=== PATIENT | male | born 1935 | race Caucasian/White ===

== ENCOUNTER 2016-07-26 15:55 | Emergency (ER) | payer MEDICARE ==
[~2016-07-26] VITALS: Ht 167.6 cm; Wt 88.4 kg
[~2016-07-26 15:55] MED LIST: ASPI81TA84 PO; LORA10CA3 PO; Metoprolol Succinate PO; NITR0.4T27 SL; SIMV40TA73 PO
[2016-07-26 15:56] VITALS: Ht 167.6 cm; Wt 88.4 kg
--- OUTSIDE RECORDS SUMMARY | 2016-07-26 15:59 | XMS REPORT | Referral Summary ---
Author Author [facility] Organization [facility] Address Unknown Phone Unavailable Care Team Providers Care Rn Support Services Name Role Phone Adiel Carlos Primary Care Physician [phone] Encounter VC Date(s): 02/06/15 - 02/06/15 [facility] [address] [place] [address] [place] [phone] Discharge Diagnosis: Essential hypertension Discharge Diagnosis: History of coronary artery bypass surgery Discharge Diagnosis: Hypercholesteremia Discharge Diagnosis: Coronary heart disease Discharge Disposition: -Home or Self Care Attending Physician: Eliseo Landers MD Admitting Physician: Eliseo Landers MD Referring Physician: Mir Carlos MD Vital Signs Most recent to 1 oldest [Reference Range]: Peripheral Pulse 64 bpm Rate [60-100 bpm] (02/06/15 9:23 AM) Blood Pressure 116/70 mmHg [90-140/60-90 mmHg] (02/06/15 9:23 AM) Problem List Condition Effective Dates Status Health Status Informant Allergic Resolved rhinitis(Confirmed) Arthritis(Confirmed) Resolved Benign essential Active hypertension (disorder)(Confirmed ) CAD (coronary artery Resolved disease)(Confirmed) Chicken Resolved pox(Confirmed) Coronary Active arteriosclerosis (disorder)(Confirmed ) Diabetes Resolved mellitus(Confirmed) Erectile Resolved dysfunction(Confirme d) Hay fever(Confirmed) Resolved Hypercholesteremia(C Resolved onfirmed) Hyperglycemia(Confir Resolved med) Hypertension(Confirm Resolved ed) Impotence of organic Active origin (disorder)(Confirmed ) Kidney Resolved disease(Confirmed) Kidney Resolved stones(Confirmed) Measles(Confirmed) Resolved Mumps(Confirmed) Resolved Obesity(Confirmed) Active patient Pneumonia(Confirmed) Resolved Prostate Resolved pain(Confirmed) PsA(Confirmed) Resolved Pure Active hypercholesterolemia (disorder)(Confirmed ) Allergies, Adverse Reactions, Alerts Substance Reaction Severity Status iodine Active penicillin Active Medications aspirin 81 mg oral tablet, disintegrating 1 tabs, Oral, Daily Start Date: 01/02/14 Status: Ordered glipiZIDE 5 mg oral tablet 0.5 tabs, Oral, Daily, 0 Refill(s) Start Date: 01/29/14 Status: Ordered Glucometer Lancets (DME) DME Item Lancet, Ultra Thin- 1 day a week, Fasting and 2 Hours PC, Supply Start Date: 01/02/14 Status: Ordered Glucometer strips (DME) DME Item Contour Test Strips- 1 day a week, Fasting and 2 Hours PC, # 1 Each, Supply Start Date: 01/02/14 Status: Ordered metoprolol tartrate 25 mg oral tablet 0.5 tabs, Oral, TID, 0 Refill(s) Start Date: 01/03/14 Status: Ordered nitroglycerin 0.4 mg sublingual tablet 1 tabs, SubLingual, q5min, as needed for chest pain, not to exceed 3 doses/15 min--if pain persists, seek medical attention Start Date: 01/02/14 Status: Ordered simvastatin 20 mg oral tablet 1 tabs, Oral, Daily Start Date: 01/02/14 Status: Ordered Viagra 100 mg oral tablet 1 tabs, Oral, Bedtime (once a day), as needed for erectile dysfunction, 1 hour before sexual activity Start Date: 01/02/14 Status: Ordered Results No data available for this section Immunizations Vaccine Date Refusal Reason tetanus/diphth/pertuss (Tdap) adult/adol 01/18/13 influenza virus vaccine, inactivated 01/29/14 influenza virus vaccine, live 01/18/13 influenza virus vaccine, live 02/15/12 pneumococcal 23-polyvalent vaccine 12/31/08 Procedures Procedure Date Related Diagnosis Body Site Cardiac Bypass 05/03/08 Cystourethroscopy and fulguration 04/13/05 Tuna 10/14/01 Lithotripsy 03/09/01 Social History Social History Type Response Smoking Status Former smoker1 1Quit in 1970 Assessment and Plan Extracted from: Title: Office Visit Note Author: Eliseo Landers MD Date: 02/06/15 Assessment/Plan 1.Coronary heart disease 2.History of coronary artery bypass surgery 3.Essential hypertension 4.Hypercholesteremia Discussion: From a cardiac point of view, he appears to be doing extremely well. I didn't make any changes in his therapy. I advised him to call if he has any symptoms of concern. Given his age and asymptomatic status, I don't plan stress testing this year.
--- OUTSIDE RECORDS SUMMARY | 2016-07-26 15:59 | XMS REPORT | Referral Summary ---
Author Author [facility] Organization [facility] Address Unknown Phone Unavailable Care Team Providers Care Certified Alcohol Drug Counselor Name Role Phone Adiel Carlos Primary Care Physician [phone] Encounter VC Date(s): 02/06/15 - 02/06/15 [facility] [address] [place] [address] [place] [address] Discharge Diagnosis: Essential [...]
--- OUTSIDE RECORDS SUMMARY | 2016-07-26 15:59 | XMS REPORT | Referral Summary ---
Author Author [facility] Organization [facility] Address Unknown Phone Unavailable Care Team Providers Care Wildlife Biologist Name Role Phone Adiel Carlos Primary Care Physician [phone] Encounter VC Date(s): 02/06/15 - 02/06/15 [facility] [address] [place] [address] [place] [address] Discharge Diagnosis: Essential [...]
--- OUTSIDE RECORDS SUMMARY | 2016-07-26 15:59 | XMS REPORT | Referral Summary ---
Author Author [facility], [facility] Organization [facility] Address Unknown Phone Unavailable Care Team Providers Care Chemical Pathologist Name Role Phone Ricci Cuello Primary Care Physician [phone] Encounter VC Date(s): 02/05/16 - 02/05/16 [facility] [address] [place] [address] [place] Discharge Diagnosis: CKD (chronic kidney disease), stage III Discharge Diagnosis: Benign essential hypertension Discharge Diagnosis: Diabetes type 2, controlled Discharge Disposition: 01-Home or Self Care Attending Physician: Ricci Cuello DO Admitting Physician: Ricci Cuello DO Vital Signs Most recent to 1 oldest [Reference Range]: Temperature Tympanic 35.8 degC [36.6-38.1 degC] *LOW* (02/05/16 8:31 AM) Peripheral Pulse 67 bpm Rate [60-100 bpm] (02/05/16 8:31 AM) Blood Pressure 118/56 mmHg [90-140/60-90 mmHg] (02/05/16 8:31 AM) Problem List Condition Effective Dates Status Health Status Informant Allergic Resolved rhinitis(Confirmed) Arthritis(Confirmed) Resolved Benign essential Active hypertension (disorder)(Confirmed ) CAD (coronary artery Resolved disease)(Confirmed) Chicken Resolved pox(Confirmed) CKD (chronic kidney Active disease), stage III(Confirmed) Coronary Active arteriosclerosis (disorder)(Confirmed ) Diabetes Resolved mellitus(Confirmed) Erectile Resolved dysfunction(Confirme d) Hay fever(Confirmed) Resolved Hypercholesteremia(C Resolved onfirmed) Hyperglycemia(Confir Resolved med) Hypertension(Confirm Resolved ed) Impotence of organic Active origin (disorder)(Confirmed ) Kidney Resolved disease(Confirmed) Kidney Resolved stones(Confirmed) Measles(Confirmed) Resolved Mumps(Confirmed) Resolved Obesity(Confirmed) Active patient Pneumonia(Confirmed) Resolved Prostate Resolved pain(Confirmed) PsA(Confirmed) Resolved Pure Active hypercholesterolemia (disorder)(Confirmed ) Diabetes type 2, Active controlled(Confirmed ) Allergies, Adverse Reactions, Alerts Substance Reaction Severity Status iodine Active penicillin Active Medications aspirin 81 mg oral tablet, disintegrating 1 tabs, Oral, Daily Start Date: 01/02/14 Status: Ordered glipiZIDE 5 mg oral tablet 5 mg 1 tabs, Oral, BID, # 180 tabs, 3 Refill(s), 0.5 tabs Oral Daily Start Date: 07/03/15 Stop Date: 06/27/16 Status: Ordered Glucometer Lancets (DME) DME Item [...] Oral, Daily Start Date: 01/02/14 Status: Ordered Results Chemistry Most recent to 1 oldest [Reference Range]: Sodium Lvl [135-144 139 mEq/L mEq/L] (02/05/16 9:05 AM) Potassium Lvl 4.3 mEq/L [3.5-5.2 mEq/L] (02/05/16 9:05 AM) Chloride [99-111 107 mEq/L mEq/L] (02/05/16 9:05 AM) CO2 [23-31 mEq/L] 23 mEq/L (02/05/16 9:05 AM) AGAP [3-20] 9 (02/05/16 9:05 AM) BUN [8-26 mg/dL] 16 mg/dL (02/05/16 9:05 AM) Glucose Lvl [70-99 216 mg/dL mg/dL] *HI* (02/05/16 9:05 AM) Creatinine Lvl 1.50 mg/dL [0.72-1.25 mg/dL] *HI* (02/05/16 9:05 AM) eGFR [>60 mL/min] 45 mL/min 1 *ABN* (02/05/16 9:05 AM) Calcium Lvl 8.9 mg/dL [8.9-10.5 mg/dL] (02/05/16 9:05 AM) Hgb A1c [4.1-5.6 %] 6.6 % *HI* (02/05/16 9:05 AM) eAvg Glucose 142.7 mg/dL (02/05/16 9:05 AM) 1Result Comment: Multiply eGFR results by 1.21 for race. Immunizations Vaccine Date Refusal Reason tetanus/diphth/pertuss (Tdap) [...] Extracted from: Title: Office Visit Note Author: Ricci Cuello DO Date: 02/05/16 Assessment/Plan 1.CKD (chronic kidney disease), stage III 1. Repeat BMP today. 2. Continue with recommendations a previous 3. Continue avoiding NSAID's 4. Follow up if development of swelling to lower exts. Ordered: Office Visit Level 4 Est 61255 2.Benign essential hypertension 1. BP is well controlled at this time. 2. Avoid excessive salt Ordered: Office Visit Level 4 Est 62983 3.Diabetes type 2, controlled 1. Repeat A1c today. 2. Continue with limiting his daily caloric intake 3. Continue with glipizide as previous. Ordered: Office Visit Level 4 Est 95920
--- OUTSIDE RECORDS SUMMARY | 2016-07-26 15:59 | XMS REPORT | Continuity of Care Document ---
Author Author [facility] Organization [facility] Address Unknown Phone Unavailable Allergies Active Description Code Type Severity Reaction Onset Reported/Identified Relationship to Patient Clinical Status Yes iodine NKMA N/A N/A 08/31/2013 Yes penicillin NKMA N/A N/A 08/31/2013 Medications Problems Procedures Results Encounters ACCT No. Visit Date/Time Discharge Status Pt. Type Provider Facility Loc./Unit Complaint [id number] 06/05/2013 08:53:00 06/05/2013 23 :59:59 CLS Outpatient
--- OUTSIDE RECORDS SUMMARY | 2016-07-26 15:59 | XMS REPORT | Referral Summary ---
Author Author [facility] Organization [facility] Address Unknown Phone Unavailable Care Team Providers Care Physician Underwriter Name Role Phone Sandrahoracio Ricci Primary Care Physician [phone] Encounter VC Date(s): 02/12/16 - 02/12/16 [facility] [address] [place] [address] [place] [phone] Discharge Diagnosis: Coronary arteriosclerosis (disorder) Discharge Diagnosis: Pure hypercholesterolemia (disorder) Discharge Diagnosis: CKD (chronic kidney disease), stage III Discharge Diagnosis: Diabetes type 2, controlled Discharge Diagnosis: Benign essential hypertension Discharge Disposition: 01-Home or Self Care Attending Physician: Eliseo Landers MD Admitting Physician: Eliseo Landers MD Vital Signs Most recent to 1 oldest [Reference Range]: Peripheral Pulse 64 bpm Rate [60-100 bpm] (02/12/16 10:38 AM) Blood Pressure 126/64 mmHg [90-140/60-90 mmHg] (02/12/16 10:38 AM) Problem List Condition Effective Dates Status [...] Daily Start Date: 01/02/14 Status: Ordered Results No [...] 1970 Assessment and Plan Extracted from: Title: Ambulatory Patient Education Author: Eliseo Landers MD Date: 02/11 Nephrology Chronic Kidney Disease Chronic kidney disease occurs when the kidneys are damaged over a long period. The kidneys are two organs that lie on either side of the spine between the middle of the back and the front of the abdomen. The kidneys: Remove wastes and extra water from the blood. Produce important hormones. These help keep bones strong, regulate blood pressure, and help create red blood cells. Balance the fluids and chemicals in the blood and tissues. A small amount of kidney damage may not cause problems, but a large amount of damage may make it difficult or impossible for the kidneys to work the way they should. If steps are not taken to slow down the kidney damage or stop it from getting worse, the kidneys may stop working permanently. Most of the time, chronic kidney disease does not go away. However, it can often be controlled, and those with the disease can usually live normal lives. CAUSES The most common causes of chronic kidney disease are diabetes and high blood pressure (hypertension). Chronic kidney disease may also be caused by: Diseases that cause the kidneys' filters to become inflamed. Diseases that affect the immune system. Genetic diseases. Medicines that damage the kidneys, such as anti-inflammatory medicines. Poisoning or exposure to toxic substances. A reoccurring kidney or urinary infection. A problem with urine flow. This may be caused by: Cancer. Kidney stones. An enlarged prostate in males. SIGNS AND SYMPTOMS Because the kidney damage in chronic kidney disease occurs slowly, symptoms develop slowly and may not be obvious until the kidney damage becomes severe. A person may have a kidney disease for years without showing any symptoms. Symptoms can include: Swelling (edema) of the legs, ankles, or feet. Tiredness (lethargy). Nausea or vomiting. Confusion. Problems with urination, such as: Decreased urine production. Frequent urination, especially at night. Frequent accidents in children who are potty trained. Muscle twitches and cramps. Shortness of breath. Weakness. Persistent itchiness. Loss of appetite. Metallic taste in the mouth. Trouble sleeping. Slowed development in children. Short stature in children. DIAGNOSIS Chronic kidney disease may be detected and diagnosed by tests, including blood, urine, imaging, or kidney biopsy tests. TREATMENT Most chronic kidney diseases cannot be cured. Treatment usually involves relieving symptoms and preventing or slowing the progression of the disease. Treatment may include: A special diet. You may need to avoid alcohol and foods thatare salty and high in potassium. Medicines. These may: Lower blood pressure. Relieve anemia. Relieve swelling. Protect the bones. HOME CARE INSTRUCTIONS Follow your prescribed diet. Your health care provider may instruct you to limit daily salt (sodium) and protein intake. Take medicines only as directed by your health care provider. Do not take any new medicines (prescription, [id number], or nutritional supplements) unless approved by your health care provider. Many medicines can worsen your kidney damage or need to have the dose adjusted. Quit smoking if you smoke. Talk to your health care provider about a smoking cessation program. Keep all follow-up visits as directed by your health care provider. Monitor your blood pressure. Start or continue an exercise plan. Get immunizations as directed by your health care provider. Take vitamin and mineral supplements as directed by your health care provider. SEEK IMMEDIATE MEDICAL CARE IF: Your symptoms get worse or you develop new symptoms. You develop symptoms of end-stage kidney disease. These include: Headaches. Abnormally dark or light skin. Numbness in the hands or feet. Easy bruising. Frequent hiccups. Menstruation stops. You have a fever. You have decreased urine production. You havepain or bleeding when urinating. MAKE SURE YOU: Understand these instructions. Will watch your condition. Will get help right away if you are not doing well or get worse. FOR MORE INFORMATION [employer] Patients: www.aakp.org National Kidney Foundation: www.kidney.org [employer]: www.akfinc.org Life [employer] [facility]: www.lifeoptions.org and www.kidneyschool.org This information is not intended to replace advice given to you by your health care provider. Make sure you discuss any questions you have with your health care provider. Document Released: 01/26/2009 Document Revised: 05/10/2015 Document Reviewed: [employer] Patient Education 2016 [employer] No follow up information was provided.
--- OUTSIDE RECORDS SUMMARY | 2016-07-26 15:59 | XMS REPORT | Continuity of Care Document ---
Author Author Mir Carlos MD [facility] Address [address] [place] [address] [place] [address] Phone Care Team Providers Care Machine Assembler Supervisor Name Role Phone Mir Carlos PP Unavailable Payers Payer name Insurance type Covered republican ID Authorization(s) Unknown Problems Condition Effective Dates (start - stop) Clinical Status Hypertension, Benign - *Chronic Hypercholesterolemia - *Chronic Diabetes Mellitus Type 2, Uncomplicated - *Chronic Erectile Dysfunction - *Chronic CAD, Unspecified - *Chronic Hypertension, Benign - Chronic Hypercholesterolemia - Chronic Erectile Dysfunction - Chronic CAD, Unspecified - Chronic URINARY CALCULUS NOS - 486 - PNEUMONIA, ORGANISM NOS - ALLERGIC RHINITIS NOS - COR ATH UNSP VSL NTV/GFT - Zoster - *Acute Hypertension, benign - *Chronic CAD (coronary artery disease) - *Chronic Hypercholesteremia - *Chronic Hyperglycemia - *Chronic Erectile Dysfunction - New onset NEED FOR PROPHYLACTIC VACCINATION WITH COMBINED [id number] ( DTP) (DTAP) VACCINE - Type 2 diabetes mellitus - New onset CAD, Unspecified - *Chronic History of coronary artery bypass surgery - *Chronic Essential hypertension - *Chronic Mixed hyperlipidemia - *Chronic Chronic kidney disease (CKD), stage II (mild) - *Chronic Influenza Vaccine - Diabetes Mellitus Type 2, Uncomplicated - *Chronic Family History Family Member Diagnosis Age At Onset Status Unknown Social History Social History Element Description Quantity Unknown Allergies, Adverse Reactions, Alerts Substance Reaction Severity Status IODINE Unknown PENICILLINS Unknown Medications Medication Instructions Dosage Effective Dates (start - stop) Status nitroglycerin 0.4 mg sublingual tablet Take 1 tablet SL as needed. - Active aspirin 81 mg effervescent tablet take 1 Tablet by Oral route every day 0 - Active METOPROLOL TARTRATE (unknown strength) take 0.5 Tablet by oral route 2 times every day - Active Viagra 100 mg tablet take 1 tablet (100MG) by oral route every bedtime as needed approximately 1 hour before sexual activity 100 MG - Active Contour Test Strips Check blood sugar fasting and 2 hours after meals one day a week. DX: 250.02 - Active Lancets,Ultra Thin Check blood sugar fasting and 2 hours after meals one day a week DX: 250.02 - Active simvastatin 20 mg tablet Take 1 tablet by mouth every day. - Active Immunizations Vaccine Date Status Comments Flu (split) (3 yrs or older) completed Tdap (Boostrix r) completed Flu (split) (3 yrs or older) completed Results Test Name Date and Time Measure Units Reference Range Abnormal Flag Comments Panel Description: Metabolic Profile Glucose 09:35:00 105 mg/dL 70-99 H BUN 09:35:00 14 mg/dL 8-26 Creatinine 09:35:00 1.24 mg/dL 0.72-1.25 Calcium 09:35:00 9.2 mg/dL 8.9-10.5 Sodium 09:35:00 143 mEq/L 135-144 Potassium 09:35:00 4.1 mEq/L 3.5-5.2 Chloride 09:35:00 113 mEq/L 99-111 H CO2 09:35:00 22 mEq/L 23-31 L Anion Gap 09:35:00 8 3-20 Testing performed at [facility] [address] [place] [id number] Toll Mechanic Will Virgen MD Panel Description: EGFR-[facility] eGFR 09:35:00 56 mL/min >60 A Multiply eGFR results by 1.21 for race.Testing performed at [facility] [address] [place] [address] Toll Mechanic Will Virgen MD Panel Description: Hemoglobin N3m-REU Hemoglobin A1C 09:35:00 6.1 % 4.1-5.6 H Testing performed at [facility] [address] [place] [address] Toll Mechanic Will Virgen MD Panel Description: EAG Calculation-[facility] Estimated Average Glucose 09:35:00 128.4 mg/dL Testing performed at [facility] [address] [place] [address] Toll Mechanic Will Virgen MD Vital Signs Date / Time: Height Weight Pulse Rate Blood Pressure Temperature /08:53:00 67.00 in 189.00 lbs 76 /min 116/70 mm[Hg] 97.9 F Procedures Procedure Date Unknown Encounters Encounter Location Date Patient Visit [facility] Patient Visit Conversion Patient Visit [facility] Patient Visit [facility] Patient Visit [facility] Patient Visit [facility] Patient Visit [facility] Card Patient Visit [facility] Patient Visit [facility] Advance Directives Directive Effective Date Unknown
--- OUTSIDE RECORDS SUMMARY | 2016-07-26 15:59 | XMS REPORT | Referral Summary ---
Author Author [facility] Organization [facility] Address Unknown Phone Unavailable Care Team Providers Care Equipment Sales Specialist Name Role Phone Ricci Cuello Primary Care Physician [phone] Encounter VC Date(s): 07/03/15 - 07/03/15 [facility], [address] [place] [address]- Discharge Diagnosis: Benign essential hypertension Discharge Disposition: 01-Home or Self Care Attending Physician: Ricci Cuello DO Admitting Physician: Ricci Cuello DO Vital Signs Most recent to 1 oldest [Reference Range]: Temperature Tympanic 35.8 degC [36.6-38.1 degC] *LOW* (07/03/15 10:42 AM) Peripheral Pulse 64 bpm Rate [60-100 bpm] (07/03/15 10:42 AM) Blood Pressure 137/77 mmHg [90-140/60-90 mmHg] (07/03/15 10:42 AM) Problem List Condition Effective Dates Status [...] activity Start Date: 01/02/14 Status: Ordered Results Chemistry Most recent to 1 oldest [Reference Range]: Sodium Lvl [135-144 141 mEq/L mEq/L] (07/03/15 11:47 AM) Potassium Lvl 4.6 mEq/L [3.5-5.2 mEq/L] (07/03/15 11:47 AM) Chloride [99-111 107 mEq/L mEq/L] (07/03/15 11:47 AM) CO2 [23-31 mEq/L] 25 mEq/L (07/03/15 11:47 AM) AGAP [3-20] 9 (07/03/15 11:47 AM) BUN [8-26 mg/dL] 14 mg/dL (07/03/15 11:47 AM) Glucose Lvl [70-99 118 mg/dL mg/dL] *HI* (07/03/15 11:47 AM) Creatinine Lvl 1.33 mg/dL [0.72-1.25 mg/dL] *HI* (07/03/15 11:47 AM) eGFR [>60 mL/min] 51 mL/min 1 *ABN* (07/03/15 11:47 AM) Calcium Lvl 9.4 mg/dL [8.9-10.5 mg/dL] (07/03/15 11:47 AM) Hgb A1c [4.1-5.6 %] 6.7 % *HI* (07/03/15 11:47 AM) eAvg Glucose 145.6 mg/dL (07/03/15 11:47 AM) 1Result Comment: Multiply eGFR results by [...] Response Smoking Status Former smoker1 1Quit in 1969 Assessment and Plan Extracted from: Title: Diabetes type II, Author: Ricci Cuello DO Date: 07/03/15 hypertension, CKD stage III, coronary artery disease Assessment/Plan Benign essential hypertension 1. Blood pressures well controlled at this time. Continue with current regimen of medications. 2. Low salt diet recommended. 3. Daily exercise recommended. CAD (coronary artery disease) 1. Continue following up with cardiology on a yearly basis and with their recommendations. Ordered: Basic Metabolic Panel Hemoglobin A1c Office Visit Level 4 Est 93824 CKD (chronic kidney disease), stage III 1. Renal function in December demonstrated a GFR reading insistent with CKD stage III. Pathophysiology of this presentation discussed in detail with the patient, he voiced understanding. 2. Recheck labs to consist of A1c and basic metabolic profile today. 3. Good blood pressure control recommended. 4. Avoid NSAIDs. 5. Follow-up in one month for reevaluation. Ordered: Basic Metabolic Panel Hemoglobin A1c Office Visit Level 4 Est 34994 Diabetes type 2, uncontrolled 1. His A1c is poorly controlled with A1c of 7.1 in December 2014. 2. Increase glyburide to 5 mg twice a day. 3. Follow-up in one month for reevaluation. He is to check his blood sugars fasting 3 days per week. Ordered: Basic Metabolic Panel Hemoglobin A1c Office Visit Level 4 Est [id number] Orders: glipiZIDE, 5 mg 1 tabs, Oral, BID, # 180 tabs, 3 Refill(s), 0.5 tabs Oral Daily
--- OUTSIDE RECORDS SUMMARY | 2016-07-26 15:59 | XMS REPORT | Referral Summary ---
Author Author [facility] Organization [facility] Address Unknown Phone Unavailable Care Team Providers Care Load Manager Name Role Phone Adiel Carlos Primary Care Physician [phone] Encounter VC Date(s): 02/06/15 - 02/06/15 [facility] [address] [place] [address] [place] [phone] [place] Discharge Diagnosis: Essential hypertension Discharge Diagnosis: History of coronary artery bypass surgery Discharge Diagnosis: Hypercholesteremia Discharge Diagnosis: Coronary heart disease Discharge Disposition: 01-Home or Self Care Attending [...]
--- OUTSIDE RECORDS SUMMARY | 2016-07-26 15:59 | XMS REPORT | Referral Summary ---
Author Author [facility], [facility] Medicine Organization [facility] Address Unknown Phone Unavailable Care Team Providers Care Manager Market Name Role Phone Ricci Cuello Primary Care Physician [phone] Encounter VC Date(s): 11/05/15 - 11/05/15 [facility], [address] [place] [address]- Discharge Disposition: 01-Home or Self Care Attending Physician: Ricci Cuello DO Admitting Physician: Ricci Cuello DO Vital Signs Most recent to 1 oldest [Reference Range]: Temperature Tympanic 35.4 degC [36.6-38.1 degC] *LOW* (11/05/15 8:16 AM) Peripheral Pulse 72 bpm Rate [60-100 bpm] (11/05/15 8:16 AM) Blood Pressure 20/75 mmHg [90-140/60-90 mmHg] *LOW* (11/05/15 8:16 AM) Problem List Condition Effective Dates Status [...] Visit Note Author: Ricci Cuello DO Date: 11/05/15 Assessment/Plan Diabetes type 2, controlled 1. His A1c has improved from 6.7-6.5. 2. Continue with same diabetes regimen as previous. 3. Continue with healthy last fall diet modification. 4. Follow-up in 3 months for diabetes management. Ordered: Hemoglobin A1c Office Visit Level 3 Est 57857 DM type 2 causing CKD stage 3 1. His renal function is slightly improved compared to previous. 2. Avoid NSAIDs. 3. Decrease high protein and salty food diet. 4. Recheck renal function in 3 months. If no improvement or if worsening presentation then we may need him to see a office cleaner. Ordered: Basic Metabolic Panel Office Visit Level 3 Est 25515 HTN (hypertension) 1. Recommendations as above. 2. Continue with same medication as previous. Follow-up in 3 months for reevaluation. Ordered: Basic Metabolic Panel Office Visit Level 3 Est 81680 Addendum Personally rechecked the patient's blood pressure and it was 124/ 78. This continues to by Teck, be acceptable. Ricci TOM on November 05, 2015 08:51:11 CDT
--- OUTSIDE RECORDS SUMMARY | 2016-07-26 15:59 | XMS REPORT | Referral Summary ---
Author Author [facility] Organization [facility] Address Unknown Phone Unavailable Care Team Providers Care Metal Tube Cutter Name Role Phone Adiel Carlos Primary Care Physician [phone] Encounter VC Date(s): 02/06/15 - 02/06/15 [facility], Cardiology [address] [place] [address] [place] [phone] [place] Discharge Diagnosis: Essential [...]
--- OUTSIDE RECORDS SUMMARY | 2016-07-26 16:00 | XMS REPORT | Referral Summary ---
Author Author [facility] Organization [facility] Address Unknown Phone Unavailable Care Team Providers Care Bridge Toll Collector Name Role Phone Adiel Carlos Primary Care Physician [phone] Encounter VC Date(s): 02/06/15 - 02/06/15 [facility], Cardiology [address] [place] [address] [place] [phone] [place] Discharge Diagnosis: Essential [...]
--- OUTSIDE RECORDS SUMMARY | 2016-07-26 16:00 | XMS REPORT | Referral Summary ---
Author Author [facility], Surgery Organization [facility] Address Unknown Phone Unavailable Care Team Providers Care Casting And Curing Operator Name Role Phone SandraRicci leonard Primary Care Physician [phone] Encounter VC Date(s): 12/25/15 - 12/25/15 [facility], S[facility], Surgery [address] [place] [address] [place] [address]- Discharge Diagnosis: Dysphagia Discharge Disposition: 01-Home or Self Care Attending Physician: Anil Nash MD Vital Signs Most recent to 1 oldest [Reference Range]: Temperature Tympanic 36 degC [36.6-38.1 degC] *LOW* (12/25/15 10:44 AM) Peripheral Pulse 64 bpm Rate [60-100 bpm] (12/25/15 10:44 AM) Blood Pressure 126/80 mmHg [90-140/60-90 mmHg] (12/25/15 10:44 AM) SpO2 95 % (12/25/15 10:44 AM) Problem List Condition Effective Dates Status [...] Extracted from: Title: Ambulatory Patient Education Author: Anil Nash MD Date: Allergy Dysphagia Swallowing problems (dysphagia) occur when solids and liquids seem to stick in your throat on the way down to your stomach, or the food takes longer to get to the stomach. Other symptoms include regurgitating food, noises coming from the throat, chest discomfort with swallowing, and a feeling of fullness or the feeling of something being stuck in your throat when swallowing. When blockage in your throat is complete, it may be associated with drooling. CAUSES Problems with swallowing may occur because of problems with the muscles. The food cannot be propelled in the usual manner into your stomach. You may have ulcers, scar tissue, or inflammation in the tube down which food travels from your mouth to your stomach (esophagus), which blocks food from passing normally into the stomach. Causes of inflammation include: Acid reflux from your stomach into your esophagus. Infection. Radiation treatment for cancer. Medicines taken without enough fluids to wash them down into your stomach. You may have nerve problems that prevent signals from being sent to the muscles of your esophagus to contract and move your food down to your stomach. Globus pharyngeus is a relatively common problem in which there is a sense of an obstruction or difficulty in swallowing, without any physical abnormalities of the swallowing passages being found. This problem usually improves over time with reassurance and testing to rule out other causes. DIAGNOSIS Dysphagia can be diagnosed and its cause can be determined by tests in which you swallow a white substance that helps illuminate the inside of your throat ( contrast medium) while X-rays are taken. Sometimes a flexible telescope that is inserted down your throat (endoscopy) to look at your esophagus and stomach is used. TREATMENT If the dysphagia is caused by acid reflux or infection, medicines may be used. If the dysphagia is caused by problems with your swallowing muscles, swallowing therapy may be used to help you strengthen your swallowing muscles. If the dysphagia is caused by a blockage or mass, procedures to remove the blockage may be done. HOME CARE INSTRUCTIONS Try to eat soft food that is easier to swallow and check your weight on a daily basis to be sure that it is not decreasing. Be sure to drink liquids when sitting upright (not lying down). SEEK MEDICAL CARE IF: You are losing weight because you are unable to swallow. You are coughing when you drink liquids (aspiration). You are coughing up partially digested food. SEEK IMMEDIATE MEDICAL CARE IF: You are unable to swallow your own saliva(. You are having shortness of breath or a fever, or both.( You have a hoarse voice along with difficulty swallowing. MAKE SURE YOU: Understand these instructions. Will watch your condition. Will get help right away if you are not doing well or get worse. This information is not intended to replace advice given to you by your health care provider. Make sure you discuss any questions you have with your health care provider. Document Released: 04/16/2001 Document Revised: 05/10/2015 Document Reviewed: Exit[employer] Patient Information 2016 [employer]. No follow up information was provided. Extracted from: Title: Office Visit Note Author: Anil Nash MD Date: 12/25/15 Assessment/Plan 1.Dysphagia Ordered: Office Visit Level 4 New [address]350 Plan: Esophagram. Await Radiographic Results and Proceed Accordingly . I did review the patient's chart including office note performed by his PCP from December 13, 2015. I did see the patient had underwent a prior modified barium swallowback on May 31, 2015. [facility] reportin regards to hismodified barium swallow. No aspiration was seen. Esophagus was not evaluated. The speech pathologist statedthe patient to takesmaller sips of thin liquidsusing secondary dry swallow to clear any real residue remaining. If symptoms persist he may benefit from short-term outpatient speech therapyto instruct patient's following strategies. Next I discussedthis dysphagia as an entity with the patient. I informed the patient that as a general there are 2categories for the underlying etiology for dysphagia. One is that of poor esophageal motility and the second is secondary to a"narrowing of thelumen of the esophagus". Typically patients witha motility disorder will state that they have problems with dysphagiaequally with both solids and liquids. Patient falls into this category. People who tend to have a narrowing of the esophageal lumenstates typically that theredysphagia is worse with solids and liquids. I informed the patient that with hisadvanced age,history of dysphagia occurring both with solids and liquidsIwould recommend that we initially proceed with an esophagram for further evaluation. I informed the patient thatfurther recommendations will depend upon his radiographic results. If noalso esophageal abnormalities are noted and he is found to have tertiary contractions endoscopic evaluation will not berecommended. If on the other hand there is some type of underlying mucosal abnormality noted on his esophagram we'll then proceedwith endoscopic evaluation. The above proposedalgorithm was discussed with the patient. Patient understood and agreed.
--- OUTSIDE RECORDS SUMMARY | 2016-07-26 16:00 | XMS REPORT | Referral Summary ---
Author Author [facility] Organization [facility] Address Unknown Phone Unavailable Care Team Providers Care Account Executive Healthcare Name Role Phone Ricci Cuello Primary Care Physician [phone] Encounter VC Date(s): 12/13/15 - 12/13/15 [facility], [address] [place] [address]- Discharge Diagnosis: Esophageal dysphagia Discharge Disposition: 01-Home or Self Care Attending Physician: Ricci Cuello DO Admitting Physician: Ricci Cuello DO Vital Signs Most recent to 1 oldest [Reference Range]: Temperature Tympanic 34.8 degC [36.6-38.1 degC] *LOW* (12/13/15 2:18 PM) Peripheral Pulse 68 bpm Rate [60-100 bpm] (12/13/15 2:18 PM) Blood Pressure 119/72 mmHg [90-140/60-90 mmHg] (12/13/15 2:18 PM) Problem List Condition Effective Dates Status Health [...] Most recent to 1 oldest [Reference Range]: Estimated Creatinine 41.82 mL/min Clearance (12/13/15 2:25 PM) Immunizations Vaccine Date Refusal Reason tetanus/diphth/pertuss (Tdap) [...] Visit Note Author: Ricci Cuello DO Date: 12/13/15 Assessment/Plan 1.Esophageal dysphagia, Dysphagia, pharyngoesophageal phase 1. We will refer him to Dr. Nash for farther evaluation and determination as to whether he meets criteria for EGD. Ordered: Office Visit Level 3 Est 79026
--- OUTSIDE RECORDS SUMMARY | 2016-07-26 16:00 | XMS REPORT | Continuity of Care Document ---
Author Author [facility] Organization [facility] Address Unknown Phone Unavailable Support Name Relationship Address Phone RUY GOMES MD Caregiver [address] [place] [address] [phone] JUAN KONG MD Caregiver [address] [place] [address] [place] [address] Unavailable Insurance Providers Payer Name Policy Number Subscriber Name Relationship Medicare [id number] Henrry Cee 18 Self Advance Directives Directive Response Recorded Date/Time Advanced Directives Type None 10/22/13 5:52am Ordered Resuscitation Status Full Code 10/22/13 3:30am Chief Complaint and Reason for Visit Chief Complaint CHEST PAIN Reason for Visit Chest pain CAD (coronary artery disease) Diet-controlled type 2 diabetes mellitus HTN (hypertension) Dyslipidemia Overweight (BMI 25.0-29.9) Problems Medical Problems Problem Onset Date Status Cough Unknown Active Cough Unknown Active Cough Unknown Active Chest pain Unknown Active CAD (coronary artery disease) Unknown Active Diet-controlled type 2 diabetes mellitus Unknown Active HTN (hypertension) Unknown Active Dyslipidemia Unknown Active Overweight (BMI 25.0-29.9) Unknown Active Medications Medication Dose Route Sig Days/Qty Instructions Order Date Discontinued Date Status [Antihyperlipidemia] 12/31/08 12/31/08 Discontinued Metoprolol Succinate 50 Mg PO THREE TIMES A DAY 11/13/09 10/22/13 Discontinued Aspirin 81 Mg PO DAILY 11/13/09 Active Simvastatin 40 Mg PO DAILY 11/13/09 Active Loratadine 10 Mg PO NEEDED 09/05/13 Active [Metoprolol Succinate] 50 Mg PO THREE TIMES A DAY 10/22/13 Active Nitroglycerin 0.4 Mg SL EVERY 5 MINUTES X 3 PRN CHEST PAIN 20 Qty 10/22 Active Social History Social History Problem Response Recorded Date/Time Smoking Status Former smoker 10/22/2013 6:06am Chewing Tobacco Status No 10/22/2013 2:09am Hx Substance Use No 10/22/2013 2:09am Hx Alcohol Use No 10/22/2013 2:09am Has the pt used tobacco in the last 12 months No 10/22/2013 6:06am Query Response Start Date Stop Date Smoking Status Unknown if ever smoked Hospital Discharge Instructions Instructions: Care Instructions: Reason for Hospitalization: Chest pain I was in the hospital because (patient own words): HAD CHEST PAIN LAST NIGHT Discharge Activity: As tolerated Follow Up Appointments: Dr Amaro this week - Recommend referal to Dr Landers for Cardiac evaluation Condition at time of discharge: Good Care Plan Discharge Patient: Patient Instructions: see patient instructions Problem: see problem list Discharge Patient: Goal: Maximum functional status Patient Instructions: see patient instructions Discharge Patient: Patient Instructions: see patient instructions Problem: see problem list Discharge Patient: Patient Instructions: see patient instructions Problem: see problem list 1.Chest pain, difficulty breathing, fever>100.5 degrees, chills, heart rate >100, confusion, or persistent nausea/vomitting. 2.Severe pain, swelling, redness, or warmth in either of your legs. 3.During office hours, call [phone] 4. After hours, please call [facility] at [phone], and have the vacuum drier operator page your Surgeon IN THE EVENT OF AN EMERGENCY, seek medical care at the nearest Emergency Room Condition at time of discharge: Good Care Plan Discharge Patient: Patient Instructions: see patient instructions Problem: see problem list Discharge Patient: Patient Instructions: see patient instructions Problem: see problem list Plan of Care Discharge Date 10/22/13 5:40pm Disposition 01 DISCHARGED HOME, SELF-CARE Instructions/Education Provided DI for Chest Pain Prescriptions See Medications Section Functional Status Query Response Date Recorded Physical Hygiene Self October 22, 2013 5:13pm Disabilities Visual October 22, 2013 5:13pm Devices Used Glasses October 22, 2013 5:13pm Dressing Self October 22, 2013 5:13pm Ambulation Self October 22, 2013 5:13pm Diet Self October 22, 2013 5:13pm Mental Status Alert Oriented October 22, 2013 5:13pm Disabilities Visual October 22, 2013 5:13pm Devices Used Glasses October 22, 2013 5:13pm Physical Hygiene Self October 22, 2013 5:13pm Dressing Self October 22, 2013 5:13pm Ambulation Self October 22, 2013 5:13pm Diet Self October 22, 2013 5:13pm Allergies, Adverse Reactions, Alerts Allergen Type Severity Reaction Status Last Updated Penicillin Allergy Unknown Active 10/22/13 Iodine Allergy Unknown Active 10/22/13 Immunizations Name Given Type Hx Influenza Vaccination Y JAN 2013 Historical Hx Pneumococcal Vaccination Y COUPLE OF YEARS AGO Historical Hx Influenza Vaccination Y JAN 2013 Historical Vital Signs Acute Vital Signs Vital Response Date/Time Temperature (Fahrenheit) 97.5 deg F (96.8 - 99.1) Temperature (Calculated Celsius) 36.36149 degrees C (36.0 - 37.3) Temperature Source Oral Pulse Rate (adult) 67 bpm (60 - 100) Respiratory Rate 20 breaths/min (10 - 20) Height 5 ft 7 in Weight 188 lb Body Mass Index 29.0 kg/m^2 Results Test Source Date Result Interp. Ref. Range Comments Activated Partial Thromboplast Time October 22, 2013 2:24am 30.4 SEC N 24- 36 Alanine Aminotransferase (ALT/SGPT) October 22, 2013 2:24am 15 U/L L 21-72 Albumin October 22, 2013 2:24am 3.5 G/DL N 3.5-5.0 Albumin/Globulin Ratio October 22, 2013 2:24am 1.3 RATIO N 1.1-2.2 Alkaline Phosphatase October 22, 2013 2:24am 63 U/L N 38-126 Amylase Level January 24, 2012 9:30pm 85 U/L N 30-110 Anion Gap October 22, 2013 2:24am 13 MEQ/L N 5-15 Aspartate Amino Transf (AST/SGOT) October 22, 2013 2:24am 22 U/L N 17-59 B-Type Natriuretic Peptide October 24, 2010 5:22pm 60 PG/ML N 15-100 BUN/Creatinine Ratio October 22, 2013 2:24am 9 RATIO N 6-26 Band Neutrophils # November 14, 2009 12:18am 0.2 T/MM3 - Band Neutrophils % November 14, 2009 12:18am 2.0 % N 0-6 Basophils # (Auto) October 22, 2013 2:24am 0.1 T/MM3 N 0-0.2 Basophils # (Manual) November 14, 2009 12:18am 0.0 T/MM3 N 0-0.2 Basophils % (Manual) November 14, 2009 12:18am 0.0 % N 0-2 Basophils (%) (Auto) October 22, 2013 2:24am 1.2 % N 0-2 Blood Urea Nitrogen October 22, 2013 2:24am 11.0 MG/DL N 9-20 Calcium Level October 22, 2013 2:24am 8.6 MG/DL N 8.4-10.2 Calculated Osmolality October 22, 2013 2:24am 275 MOSM/KG N 261-280 Carbon Dioxide Level October 22, 2013 2:24am 19 MEQ/L L 22-30 Chloride Level October 22, 2013 2:24am 110 MEQ/L H 98-107 Conjugated Bilirubin January 24, 2012 9:30pm 0.00 MG/DL N 0.00-0.30 Creatinine October 22, 2013 2:24am 1.2 MG/DL N 0.8-1.5 Eosinophils # (Auto) October 22, 2013 2:24am 0.8 T/MM3 H 0-0.5 Eosinophils # (Manual) November 14, 2009 12:18am 0.0 T/MM3 N 0-0.5 Eosinophils % (Manual) November 14, 2009 12:18am 0.0 % N 0-4 Eosinophils (%) (Auto) October 22, 2013 2:24am 9.3 % H 0-4 Globulin October 22, 2013 2:24am 2.8 G/DL N 2.4-3.6 Glucose Level October 22, 2013 2:24am 152 MG/DL H 75-110 Hematocrit October 22, 2013 2:24am 46.1 % N 41-53 Hemoglobin October 22, 2013 2:24am 15.4 GM/DL N 13.5-17.5 Lipase October 22, 2013 2:24am 123 U/L N 23-300 Lymphocytes # (Auto) October 22, 2013 2:24am 2.2 T/MM3 N 1-4.8 Lymphocytes # (Manual) November 14, 2009 12:18am 1.3 T/MM3 N 1-4.8 Lymphocytes % (Manual) November 14, 2009 12:18am 12.0 % L 23-45 Lymphocytes (%) (Auto) October 22, 2013 2:24am 26.7 % N 23-45 Mean Corpuscular Hemoglobin October 22, 2013 2:24am 28.1 UUG N 26-34 Mean Corpuscular Hemoglobin Concent October 22, 2013 2:24am 33.4 GM/DL N 31 -37 Mean Corpuscular Volume October 22, 2013 2:24am 84.0 UM3 N 80-100 Mean Platelet Volume October 22, 2013 2:24am 8.9 UM3 L 9.4-12.4 Monocytes # (Auto) October 22, 2013 2:24am 1.0 T/MM3 H 0-0.8 Monocytes # (Manual) November 14, 2009 12:18am 1.7 T/MM3 H 0-0.8 Monocytes % (Manual) November 14, 2009 12:18am 16.0 % H 0-9.0 Monocytes (%) (Auto) October 22, 2013 2:24am 12.2 % H 0-9.0 Neutrophils # (Auto) October 22, 2013 2:24am 4.1 T/MM3 N 1.8-7.7 Neutrophils # (Manual) November 14, 2009 12:18am 7.6 T/MM3 N 1.8-7.7 Neutrophils % (Manual) November 14, 2009 12:18am 70.0 % H 33-66 Neutrophils (%) (Auto) October 22, 2013 2:24am 50.1 % N 33-66 Platelet Count October 22, 2013 2:24am 308 T/MM3 N 130-400 Potassium Level October 22, 2013 2:24am 3.7 MEQ/L N 3.6-5 Prothromb Time International Ratio October 22, 2013 2:24am 0.93 N 0.81- 1.09 THERAPUTIC RANGE=2.00-3.00 FOR ANTI-THROMBOSIS THERAPUTIC RANGE=2.50- 3.50 FOR IMPLANTED VALVE RDW Standard Deviation October 22, 2013 2:24am 43.7 FL N 36.9-50.2 Red Blood Count October 22, 2013 2:24am 5.49 M/MM3 N 4.50-5.90 Sodium Level October 22, 2013 2:24am 142 MEQ/L N 134-144 Total Bilirubin October 22, 2013 2:24am 0.10 MG/DL L 0.20-1.30 Total Protein October 22, 2013 2:24am 6.3 G/DL N 6.3-8.2 Troponin I October 22, 2013 2:23pm < 0.012 ng/ml 0-0.12 Unconjugated Bilirubin January 24, 2012 9:30pm 0.40 MG/DL N 0.00-1.10 Urine Bilirubin January 24, 2012 10:08pm Negative - Has specimen been collected/obtained? Y Urine Blood January 24, 2012 10:08pm Negative - Has specimen been collected/obtained? Y Urine Collection Type January 24, 2012 10:08pm Voided - Has specimen been collected/obtained? Y Urine Color January 24, 2012 10:08pm Yellow - Has specimen been collected/obtained? Y Urine Glucose (UA) January 24, 2012 10:08pm Negative - Has specimen been collected/obtained? Y Urine Ketones January 24, 2012 10:08pm Trace H - Has specimen been collected/obtained? Y Urine Leukocyte Esterase January 24, 2012 10:08pm Negative - Has specimen been collected/obtained? Y Urine Nitrite January 24, 2012 10:08pm Negative - Has specimen been collected/obtained? Y Urine Protein January 24, 2012 10:08pm Negative - Has specimen been collected/obtained? Y Urine Specific [place] January 24, 2012 10:08pm 1.020 - Has specimen been collected/obtained? Y Urine Turbidity January 24, 2012 10:08pm Clear - Has specimen been collected/obtained? Y Urine Urobilinogen January 24, 2012 10:08pm Normal EU/DL - Has specimen been collected/obtained? Y Urine pH January 24, 2012 10:08pm 6.0 - Has specimen been collected /obtained? Y White Blood Count October 22, 2013 2:24am 8.2 T/MM3 N 4.5-11.0 Chemistry Specimen Hemolysis October 22, 2013 2:23pm < 15 0-25 0-25: No Hemolysis.26-70: Slight Hemolysis - can falsely elevate K and Urine Protein. 71-285: Moderate Hemolysis - can falsely elevate K, Troponin I, CA 19-9, PTH, CSF GLucose, and Urine Protein, and can falsely decrease Phenytoin. 286-999: Gross Hemolysis - can falsely elevate K, Troponin I, CA 19-9, PTH, CSF Glucose, and Urine Protine, and can falsely decrease Phenytoin. Recommend specimen recollection. Glucometer October 22, 2013 11:11am 136 mg/dL H 75-110 EKG December 31, 2008 3:55pm Complete - Turbidity October 22, 2013 2:24am < 20 0-20 Glomerular Filtration Rate Calc October 22, 2013 2:24am 58 - Immature Granulocyte # (Auto) October 22, 2013 2:24am 0.04 T/MM3 H 0.00- 0.03 Immature Granulocyte % (Auto) October 22, 2013 2:24am 0.5 % N 0.0-0.5 Icterus Index October 22, 2013 2:24am < 2 0-7 JH-Yox-B-Type Natriuretic Peptide October 22, 2013 2:24am 89 PG/ML N 0-175 Rule in cut points: <50 years old=450; 50-75 years old=900; >75 years old=1800; When utilizing ProBNP rule-in cut points, adjustment for impaired renal function is typically not required. Urine Microscopic Not Indicated January 24, 2012 10:08pm Not indicated - Has specimen been collected/obtained? Y Blood Culture Blood January 24, 2012 10:03pm NO GROWTH AFTER 5 DAYS Procedures No known history of procedures. Encounters Encounter Location Date/Time Discharged Inpatient [facility] 10/22/13 3:30am Departed Emergency Room [facility] 10/10/13 9:05am Departed Emergency Room [facility] 09/05/13 12:16am Recent Diagnosis Chest pain CAD (coronary artery disease) Diet-controlled type 2 diabetes mellitus HTN (hypertension) Dyslipidemia Overweight (BMI 25.0-29.9)
--- OUTSIDE RECORDS SUMMARY | 2016-07-26 16:00 | XMS REPORT | Referral Summary ---
Author Author [facility] Organization [facility] Address Unknown Phone Unavailable Care Team Providers Care Fruit Pitter Name Role Phone SandrahoracioRicci Primary Care Physician [phone] Encounter VC Date(s): 02/06/15 - 02/06/15 [facility] [address] [place] [address] [place] [phone]- [place] Discharge Diagnosis: Essential hypertension Discharge Diagnosis: [...]
--- OUTSIDE RECORDS SUMMARY | 2016-07-26 16:00 | XMS REPORT | Referral Summary ---
Author Author [facility] Organization [facility] Address Unknown Phone Unavailable Care Team Providers Care Pallet Assembler Name Role Phone Ricci Cuello Primary Care Physician [phone] Encounter VC Date(s): 05/28/15 - 05/28/15 [facility], [address] [place] [address] Discharge Disposition: 01-Home or Self Care Attending Physician: Victor Manuel Hogue APRN Admitting Physician: Victor Manuel Hogue APRN Vital Signs Most recent to 1 oldest [Reference Range]: Peripheral Pulse 56 bpm Rate [60-100 bpm] *LOW* (05/28/15 2:31 PM) Blood Pressure 108/68 mmHg [90-140/60-90 mmHg] (05/28/15 2:31 PM) SpO2 95 % (05/28/15 2:31 PM) Problem List Condition Effective Dates Status [...] smoker1 1Quit in 1970 Assessment and Plan No data available for this section
--- OUTSIDE RECORDS SUMMARY | 2016-07-26 16:00 | XMS REPORT | Referral Summary ---
Author Author [facility] Organization [facility] Address Unknown Phone Unavailable Care Team Providers Care Cannon Pinion Adjuster Name Role Phone Adiel Carlos Primary Care Physician [phone] Encounter VC Date(s): 02/06/15 - 02/06/15 [facility] [address] [place] [address] [place] [phone] Discharge Diagnosis: Essential [...]
--- OUTSIDE RECORDS SUMMARY | 2016-07-26 16:00 | XMS REPORT | Referral Summary ---
Author Author [facility], [facility] Organization [facility] Address Unknown Phone Unavailable Care Team Providers Care Shaker Operator Name Role Phone Ricci Cuello Primary Care Physician [phone] Encounter VC Date(s): 08/05/15 - 08/05/15 [facility] [address] [place] [phone] Discharge Diagnosis: CKD (chronic kidney disease), stage III Discharge Diagnosis: Benign essential hypertension Discharge Diagnosis: Diabetes type 2, controlled Discharge Disposition: 01-Home or Self Care Attending Physician: Ricci Cuello DO Admitting Physician: Ricci Cuello DO Vital Signs Most recent to 1 oldest [Reference Range]: Temperature Tympanic 35.2 degC [36.6-38.1 degC] *LOW* (08/05/15 8:17 AM) Peripheral Pulse 65 bpm Rate [60-100 bpm] (08/05/15 8:17 AM) Blood Pressure 127/70 mmHg [90-140/60-90 mmHg] (08/05/15 8:17 AM) Problem List Condition Effective Dates Status [...] 1970 Assessment and Plan Extracted from: Title: Diabetes type II, Author: Ricci Cuello DO Date: 08/05/15 hypertension, CKD stage III Assessment/Plan Benign essential hypertension, Essential (primary) hypertension 1. Blood pressures well controlled at this time. 2. Low salt diet recommended. 3. Daily exercise recommended. Ordered: Comprehensive Metabolic Panel Office Visit Level 4 Est 06091 Chronic kidney disease, stage 3 (moderate), CKD (chronic kidney disease), stage III 1. His labs are consistent with CKD stage III. Pathophysiology of this presentation discussed in detail with the patient. 2. Good blood pressure and blood sugar control recommended, he voiced understanding. 3. Low protein diet recommended. 4. We plan on rechecking his renal function in 3 months. If it worsens then we plan on sending him to nephrology. Ordered: Comprehensive Metabolic Panel Office Visit Level 4 Est 19972 Diabetes type 2, controlled, Type 2 diabetes mellitus without complications 1. His fasting blood sugars have improved compared to previous. 2. A1c was 6.7. 3. Recheck A1c and fasting lipids in 3 months. Follow-up in 3 months for reevaluation. 4. Continue with glyburide 5 mg twice a day. 5. Recommended considering daily exercise with walking. Ordered: Comprehensive Metabolic Panel Hemoglobin A1c Lipid Panel Office Visit Level 4 Est 89408
--- NOTE | 2016-07-26 16:37 | ERPDOC ---
Departure Disposition Decision Date: Jul 26, 2016 Disposition Decision Time: 19:49 (DERECK PEOPLES APRN) Disposition: 01 DISCHARGED HOME, SELF-CARE Impression Impression (DERECK PEOPLES APRN) Impression: Primary Impression: Gastroenteritis Additional Impression: Cough Condition: Improved Seen By: Mid-level only (DERECK PEOPLES APRN) Referrals: BAMBI CEDENO DO (Family) Patient Instructions: Acute Cough (ED), Gastroenteritis (ED) Problems/Meds/Labs Reviewed?: Yes Medications reviewed and manag: Yes (DERECK PEOPLES APRN) Additional Instructions: You may take zofran 4mg ODT, dissolve 1 tab on your tongue every 6 hours for nausea/vomiting. Advance diet slowly. Stay well hydrated, drink fluids often. Rest. Your chest x-ray did not show a pneumonia. If your cough is not improving or nausea/vomiting/diarrhea in the next 3 days follow with your PCP for re- evaluation, sooner if worsting symptoms. Follow treatment plan. Follow up care ordered?: Yes Mental Status: Alert, Oriented (DERECK PEOPLES APRN) Scripts Ondansetron (Zofran Odt) 4 Mg Tab.rapdis 4 MG PO Q6HR for NAUSEA &/OR VOMITING, #20 TAB Oral disintegrating tablet Prov: DERECK PEOPLES APRN 07/26/16 HPI - Abdominal Pain General Chief Complaint: Nausea,Vomiting,Diarrhea Stated Complaint: SOA, MALAISE Time Seen by Provider: 16:21 Source: patient (DERECK PEOPLES APRN) Time Seen by Provider: 19:43 (MANAV FRIEDMAN MD) HPI - Abdominal Pain Initial Comments 81 YO M brought to ED by EMS for evaluation of cough, feeling weak, nausea, vomiting and diarrhea. Patient says that his seasonal allergies have been making sick. Patient says that he has had several diarrhea stools today and has vomiting once or twice. Patient had diarrhea stool in the ED after arrival. Patient denies fever, chills, SOA, CP or abdominal pain to provider. Patient does point to right anterior lower ribs and says that it hurts in that area when he coughs. [id number] who patient lives with says she has had gastroenteritis. Pain Scale: Now: 0/10 Associated Symptoms: nausea/vomiting, DENIES: back pain, chest pain, diaphoresis, fatigue, fever/chills, headache, heartburn, rash, shortness of breath, swelling/mass in abdomen, syncope, weakness (DERECK PEOPLES WATERSHED PROGRAM MANAGER) Allergies: Coded Allergies: Penicillins (Verified Allergy, Unknown, 07/26/16) iodine (Verified Allergy, Unknown, 07/26/16) Past History Past Medical History Metabolic: diabetes, hypercholesterolemia, hypertension ENMT: allergies Cardiac: CAD, echocardiogram Respiratory: DENIES: asthma GI: DENIES: ulcers Male: BPH Musculoskeletal: osteoarthritis Psychological: DENIES: depression (DERECK PEOPLES WATERSHED PROGRAM MANAGER) Surgical History General: tonsils Cardiac: cardiac bypass, cardiac cath (DERECK PEOPLES WATERSHED PROGRAM MANAGER) Family History Family PMH: FOUND: CAD, diabetes (DERECK PEOPLES WATERSHED PROGRAM MANAGER) Vaccines Hx Influenza Vaccination: Yes (JAN 2013) Hx Pneumococcal Vaccination: Yes (COUPLE OF YEARS AGO) (DERECK PEOPLES APRN) Social History Household Members: family (DERECK PEOPLES APRN) Review of Systems Constitutional Constitutional: other (generalized malasie), DENIES: chills, dizziness, fever ( ANA PEOPLESS A WATERSHED PROGRAM MANAGER) Eyes General: DENIES: erythema, exudate Lids/Accessories: DENIES: erythema, swelling (ANA PEOPLESS A WATERSHED PROGRAM MANAGER) ENMT Ears: DENIES: pain Sinuses: DENIES: congestion, rhinorrhea Mouth/Throat: DENIES: sore throat (ANA PEOPLESS A WATERSHED PROGRAM MANAGER) Cardiovascular Cardiac: DENIES: chest pain, murmur Rhythm/Rate: DENIES: palpitations (ANA PEOPLESS A WATERSHED PROGRAM MANAGER) Pulmonary Respiratory: cough, see HPI, DENIES: dyspnea (ANA PEOPLESS A WATERSHED PROGRAM MANAGER) GI Upper Abdomen: nausea, vomiting, DENIES: pain Lower Abdomen: diarrhea, DENIES: pain (ANA PEOPLESS A WATERSHED PROGRAM MANAGER) General: DENIES: dysuria, pain (ANA PEOPLESS A WATERSHED PROGRAM MANAGER) Musculoskeletal General: DENIES: joint pain, pain, tenderness (ANA PEOPLESS A WATERSHED PROGRAM MANAGER) Integumentary Skin: DENIES: color change, itching, rash (ANA PEOPLESS A WATERSHED PROGRAM MANAGER) Neurological General: DENIES: change in strength, numbness, weakness (ANA PEOPLESS A WATERSHED PROGRAM MANAGER) Psychiatric Psychiatric: DENIES: anxiety, depression, nervousness (ANA PEOPLESS A WATERSHED PROGRAM MANAGER) Physical Exam General General Nourishment: well nourished, well developed, no acute distress, adult General Body Habitus: well groomed (DERECK PEOPLES APRN) Vitals and Pain First Documented Vital Signs Date Time Temp Pulse Resp B/P Pulse Ox O2 Delivery O2 Flow Rate FiO2 07/26/16 15:56 97.9 79 18 145/64 91 Room Air 07/26/16 17:40 2.00 (MANAV FRIEDMAN MD) Vitals and Pain Weight: Kilograms: Height (feet): Height (inches): Triage Pain Scale: (DERECK PEOPLES APRN) Eyes (brief) Eyes Brief: found: EOMI (DERECK PEOPLES APRN) ENMT (brief) ENMT Brief: FOUND: TM clear, TM good light reflex, mucosa moist, NOT FOUND: nasal exudate, nasal swelling, pharnyx erythema (DERECK PEOPLES APRN) Neck (brief) Neck: FOUND: trachea midline, NOT FOUND: adenopathy, tenderness, thyromegaly ( DERECK PEOPLES APRN) Respiratory (brief) Respiratory: FOUND: clear all mittal, equal bilaterally, symmetrical, tenderness (mild TTP over 10th anterior rib) (DERECK PEOPLES APRN) Cardiovascular (brief) Cardiac: FOUND: regular rate, regular rhythm (DERECK PEOPLES APRN) Abdomen Inspection: NOT FOUND: distention Palpation: FOUND: soft, NOT FOUND: McBurney's point tender, Rosving's sign, involuntary guarding, rebound, tender, voluntary guarding Auscultation: FOUND: normoactive (x4) (DERECK PEOPLES APRN) Musculoskeletal (brief) Musculoskeletal Brief: NOT FOUND: deformity, loss of motion (DERECK PEOPLES WATERSHED PROGRAM MANAGER) Integumentary (brief) Integumentary Brief: FOUND: dry, pink, warm (DERECK PEOPLES WATERSHED PROGRAM MANAGER) Neurologic (brief) Neurological Brief: FOUND: CN w/o gross def to obs, motor-no gross deficits, sensory-no gross deficits (DERECK PEOPLES WATERSHED PROGRAM MANAGER) Psychiatric (brief) Psychiatric Brief: FOUND: alert, normal affect, oriented (DERECK PEOPLES WATERSHED PROGRAM MANAGER ) Differential Diagnoses Considering: Biliary Colic, Cholecystitis, Dehydration, Food Poisoning, Gastroenteritis, Hypokalemia, Pneumonia, UTI, Viral Syndrome (DERECK PEOPLES APRN) Progress Results/Orders Orders Procedure Category Date Status Time Cbc W/Auto LAB 07/26/16 Complete Diff-Reflex Manual 16:43 Cmp - Comprehensive LAB 07/26/16 Complete Metabolic 16:43 Ua, Dip Wreflex LAB 07/26/16 Complete [facility] Coordinator 16:43 Iv Lock (Ed Only) EDM 07/26/16 Transmitted 16:43 Normal Saline (Normal PHA 07/26/16 Complete Saline Iv) 16:43 Ondansetron Inj PHA 07/26/16 Complete (Zofran) 16:45 Chest, Pa & Lateral RAD 07/26/16 Resulted Influenza A/B Screen LAB 07/26/16 Complete 16:43 Morphine Sulfate PHA 07/26/16 Complete (Morphine) 17:45 Ondansetron Odt PHA 07/26/16 Complete (Prepack) (Zofran Odt 20:00 (MANAV FRIEDMAN MD) Lab Results Laboratory Tests Test 07/26/16 16:59 07/26/16 17:08 07/26/16 18:54 Influenza Type A Antigen Negative Influenza Type B Antigen Negative White Blood Count 13.9T/MM3 Red Blood Count 5.82M/MM3 Hemoglobin 16.5GM/DL Hematocrit 49.8% Mean Corpuscular Volume 85.6UM3 Mean Corpuscular Hemoglobin 28.4UUG Mean Corpuscular Hemoglobin Concent 33.1GM/DL RDW Standard Deviation 43.0FL Platelet Count 217T/MM3 Mean Platelet Volume 9.5UM3 Immature Granulocyte % (Auto) 0.2% Neutrophils (%) (Auto) 80.4% Lymphocytes (%) (Auto) 3.8% Monocytes (%) (Auto) 10.0% Eosinophils (%) (Auto) 5.2% Basophils (%) (Auto) 0.4% Absolute Immature Granulocyte (auto 0.03T/MM3 Absolute Neutrophils (auto) 11.2T/MM3 Absolute Lymphocytes (auto) 0.5T/MM3 Absolute Monocytes (auto) 1.4T/MM3 Absolute Eosinophils (auto) 0.7T/MM3 Absolute Basophils (auto) 0.1T/MM3 Turbidity < 20 Sodium Level 141MEQ/L Potassium Level 5.6MEQ/L Chloride Level 104MEQ/L Carbon Dioxide Level 24MEQ/L Anion Gap 13MEQ/L Blood Urea Nitrogen 14.0MG/DL Creatinine 1.5MG/DL Glomerular Filtration Rate Calc 45 BUN/Creatinine Ratio 9RATIO Glucose Level 242MG/DL Calculated Osmolality 280MOSM/KG Calcium Level 9.2MG/DL Total Bilirubin 1.30MG/DL Icterus Index < 2 Aspartate Amino Transf (AST/SGOT) 28U/L Alanine Aminotransferase (ALT/SGPT) 35U/L Alkaline Phosphatase 83U/L Total Protein 7.6G/DL Albumin 4.2G/DL Globulin 3.4G/DL Albumin/Globulin Ratio 1.2RATIO Chemistry Specimen Hemolysis < 15 Urine Collection Type Voided-not cc-midstr Urine Color Yellow Urine Turbidity Clear Urine pH 6.0 Urine Specific [place] 1.025 Urine Protein Negative Urine Glucose (UA) 1+ Urine Ketones Negative Urine Blood Negative Urine Nitrite Negative Urine Bilirubin Negative Urine Urobilinogen 0.2EU/DL Urine Leukocyte Esterase Negative Urinalysis Comment Microscopic not ind. (MANAV FRIEDMAN MD) Medications Current ED Medications Sodium Chloride (Normal Saline IV) 1,000 ml @ 0 mls/hr Q0M ONCE IV Last administered on 07/26/16 16:55; Start 07/26/16 at 16:43; Stop 07/26/16 at 16:47 ; Status DC Ondansetron HCl (Zofran) 4 mg O ONCE IV Last administered on 07/26/16 16:55; Start 07/26/16 at 16:45; Stop 07/26/16 at 16:47; Status DC Morphine Sulfate (Morphine) 2 mg O ONCE IV Last administered on 07/26/16 18: 09; Start 07/26/16 at 17:45; Stop 07/26/16 at 17:46; Status DC Ondansetron HCl (ZOFRAN ODT (PrePack)) 1 pack O ONCE SENT HOME Last administered on 07/26/16 20:56; Start 07/26/16 at 20:00; Stop 07/26/16 at 20:01 ; Status DC (MANAV FRIEDMAN MD) Progress Progress CBC 13.9 no bands CMP unremarkable except for 5.6 K secondary to volume depletion UA noncontributory No pneumonia on x-ray, influenza negative Patient consistent with gastroenteritis or influenza. Discussed patient's labs, exam findings and treatment given in the ER with Dr. Friedman agrees with plan of care. Patient reports feeling "much better after fluids and Zofran". Patient states he would like to go home at this time. I discussed labs and chest x-ray with patient and his [id number]. I will send Zofran prepack with patient for tonight and additional prescription for Zofran if nausea and vomiting continue. Patient is to follow with his PCP if symptoms are not improving in next 2-3 days. Patient and daughter in law verbalized understanding of treatment plan follow-up and return precautions. (DERECK PEOPLES APRN) Xray Xray : Xray: CXR PA/Lat (no acute cardiopulmonary findings (Dr. Friedman)) (DERECK PEOPLES APRN) Xray : Xray: CXR PA/Lat Interpretation: Normal, Interpreted by Me (no acute cardiopulmonary findings ) (MANAV FRIEDMAN MD) DERECK PEOPLES APRN Jul 26, 2016 16:37 MANAV FRIEDMAN MD Jul 27, 2016 01:53
[2016-07-26] MEDS ORDERED: NORMAL SALINE 1,000 ML IV ONE (16:43)
[2016-07-26] MEDS ORDERED: ONDANSETRON 4mg/2ml INJECTION IV ONE (16:45)
[2016-07-26] MEDS ORDERED: GLIP5TAB11 PO (16:56)
[2016-07-26] MEDS ORDERED: METO50TA5 PO (16:57)
[2016-07-26] MEDS ORDERED: METO100T5 PO (17:01)
--- NOTE | 2016-07-26 17:05 | NUR ---
LAB AT BEDSIDE FOR BLOOD DRAW.
--- OUTSIDE RECORDS SUMMARY | 2016-07-26 17:12 | XMS REPORT | Continuity of Care Document ---
Author Author [facility] Organization [facility] Address Unknown Phone Unavailable Allergies Active Description Code Type Severity Reaction Onset Reported/Identified Relationship to Patient Clinical Status Yes iodine NKMA N/A N/A 08/31/2013 Yes penicillin NKMA N/A N/A 08/31/2013 Medications Problems Procedures Results Encounters ACCT No. Visit Date/Time Discharge Status Pt. Type Provider Facility Loc./Unit Complaint [id number] 06/05/2013 08:53:00 06/05/2013 23 :59:59 CLS Outpatient
--- OUTSIDE RECORDS SUMMARY | 2016-07-26 17:13 | XMS REPORT | Continuity of Care Document ---
Author Author [facility] Organization [facility] Address Unknown Phone Unavailable Support Name Relationship Address Phone RUY GOMES MD Caregiver [address] [place] [address] [phone] JUAN KONG MD Caregiver [address] [place] [address] [place] [address] Unavailable Insurance Providers Payer Name Policy Number Subscriber Name Relationship Medicare [id number] Henrry Cee 16 Self Advance Directives Directive [...] of your legs. 3.During office hours, call [phone] 4. After hours, please call [facility] at [phone], and have the stem roller or crusher operator page your Surgeon IN THE EVENT [...] F (96.8 - 99.1) Temperature (Calculated Celsius) 36.27263 degrees C (36.0 - 37.3) Temperature Source [...] Has specimen been collected/obtained? Y Urine Specific [place] January 24, 2012 10:08pm 1.020 - Has [...] October 22, 2013 2:24am < 2 0-7 YQ-Spi-U-Type Natriuretic Peptide October 22, 2013 2:24am 89 [...] procedures. Encounters Encounter Location Date/Time Discharged Inpatient [facility] 10/22/13 3:30am Departed Emergency Room [facility] 10/10/13 9:05am Departed Emergency Room [facility] 09/05/13 12:16am Recent Diagnosis Chest pain CAD (coronary artery disease) Diet-controlled type 2 diabetes mellitus HTN (hypertension) Dyslipidemia Overweight (BMI 25.0-29.9)
--- NOTE | 2016-07-26 17:16 | NUR ---
XRAY PT TO XRAY BY CART AT THIS TIME.
[2016-07-26 17:23] LABS: BASOPHILS # (AUTO) 0.1 T/MM3 (0-0.2); BASOPHILS % (AUTO) 0.4 % (0-2); EOSINOPHILS # (AUTO) 0.7 T/MM3 (0-0.5); EOSINOPHILS % (AUTO) 5.2 % (0-4); HCT - HEMATOCRIT 49.8 % (41-53); HGB - HEMOGLOBIN 16.5 GM/DL (13.5-17.5); IMMATURE GRANULOCYTE # (AUTO) 0.03 T/MM3 (0.00-0.03); IMMATURE GRANULOCYTE % (AUTO) 0.2 % (0.0-0.5); LYMPHOCYTES # (AUTO) 0.5 T/MM3 (1-4.8); LYMPHOCYTES % (AUTO) 3.8 % (23-45); MEAN CORPUSCULAR HGB 28.4 UUG (26-34); MEAN CORPUSCULAR HGB CONC(MCHC 33.1 GM/DL (31-37); MEAN CORPUSCULAR VOLUME 85.6 UM3 (80-100); MEAN PLATELET VOLUME 9.5 UM3 (9.4-12.4); MONOCYTES # (AUTO) 1.4 T/MM3 (0-0.8); NEUTROPHILS #(AUTO)-ABSOLUTE 11.2 T/MM3 (1.8-7.7); NEUTROPHILS % (AUTO) 80.4 % (33-66); RED BLOOD COUNT 5.82 M/MM3 (4.50-5.90); WBC - WHITE BLOOD COUNT 13.9 T/MM3 (4.5-11.0)
[2016-07-26 17:26] LABS: INFLUENZA A AG SCREEN NEGATIVE (NEGATIVE)
[2016-07-26 17:27] LABS: INFLUENZA B AG SCREEN NEGATIVE (NEGATIVE)
[2016-07-26 17:27] LABS: ALBUMIN 4.2 G/DL (3.5-5.0); ALBUMIN/GLOBULIN RATIO 1.2 RATIO (1.1-2.2); ALKALINE PHOSPHATASE 83 U/L (38-126); ALT (SGPT) 35 U/L (21-72); ANION GAP 13 MEQ/L (5-15); AST (SGOT) 28 U/L (17-59); BUN/CREATININE RATIO 9 RATIO (6-26); CALCIUM 9.2 MG/DL (8.4-10.2); CHLORIDE 104 MEQ/L (98-107); CO2 - CARBON DIOXIDE 24 MEQ/L (22-30); CREATININE 1.5 MG/DL (0.8-1.5); GLOMERULAR FILTRATION RATE 45; GLUCOSE 242 MG/DL (75-110); POTASSIUM 5.6 MEQ/L (3.6-5); SODIUM 141 MEQ/L (134-144); TOTAL PROTEIN 7.6 G/DL (6.3-8.2)
--- NOTE | 2016-07-26 17:28 | NUR ---
RETURN PT RETURNED FROM XRAY BY CART AT THIS TIME.
--- NOTE | 2016-07-26 17:40 | NUR ---
OXYGEN PT OXYGEN NOTED TO FLUCTUATE BETWEEN 88% AND 91% ON RA WHILE SLEEPING IN CART. O2 2LPM BY NC PLACED WITH INCREASE IN SPO2 TO 94%. WILL CONTINUE TO MONITOR.
[2016-07-26] MEDS ORDERED: MORPHINE SULFATE 2 MG SYRINGE IV ONE (17:45)
--- NOTE | 2016-07-26 18:25 | NUR ---
STATUS PT APPEARS TO BE RESTING COMFORTABLY IN CART. REPORTS DECREASE IN PAIN TO 0/10 AFTER MORPHINE ADM. ADVISED NEED A URINE SPECIMEN WITH URINAL LEFT AT BEDSIDE. DENIES FURTHER NEEDS AT THIS TIME. CALL LIGHT WITHIN REACH, WILL CONTINUE TO MONITOR.
--- NOTE | 2016-07-26 18:55 | NUR ---
OXYGEN PT SPO2 97% ON 2LPM BY NC. OXYGEN DC'D AT THIS TIME. PT MAINTAINING OXYGEN AT 94% ON RA. WILL CONTINUE TO MONITOR.
[2016-07-26 19:33] LABS: BLOOD, URINE NEGATIVE (NEGATIVE); COLOR,URINE YELLOW (YELLOW); LEUKOCYTE ESTERASE ,URINE NEGATIVE (NEGATIVE); NITRITE,URINE NEGATIVE (NEGATIVE); UROBILINOGEN,URINE 0.2 EU/DL (NORMAL)
[2016-07-26] MEDS ORDERED: ONDA4TAB7 PO (19:53)
[2016-07-26] MEDS ORDERED: ONDANSETRON ODT 4mg #3 (PrePack) SENT HOME ONE (20:00)
[2016-07-26 21:00] VITALS: BP 128/59; PULSE 86; RESP 18; TEMP 97.9; O2SAT 91
--- NOTE | 2016-07-26 21:00 | NUR ---
DISCHARGE WRITTEN INSTRUCTIONS WITH ZOFRAN RX REVIEWED AND SENT WITH PT. PT VERBALIZES UNDERSTANDING OF DI AND MEDICATION, DENIES QUESTIONS. PT REPORTS FEELING "A WHOLE LOT BETTER" AND CONTINUES TO BE PAIN FREE ON DISMISSAL. PT AMBULATES OUT OF ER WITH STEADY GAIT ACCOMP BY FAMILY AT THIS TIME.
--- NOTE | 2016-07-26 21:01 | DI ---
INDICATION: ITS.REASON: SOA PROCEDURE: CHEST 2-VIEWS UPRIGHT (PA \T\ LAT) Encounter: Initial Comparison: October 22, 2013 Findings: Mild interstitial prominence without focal consolidation. There is no pleural effusion or pneumothorax. The heart size and mediastinal contours are unchanged. Prior sternotomy. IMPRESSION: Mild interstitial prominence could be due to atypical pneumonia or mild vascular congestion/edema. .
== END 2016-07-26 21:00 | disposition home or self-care (01) ==
LOC: ED 15:55
DX: K52.9 Noninfective gastroenteritis and colitis, unspecified (principal); R05 Cough
CPT/HCPCS: 36415; 71020; 80053; 81003; 85025; 87400; 96374; 96375; 99284; J2405; J7030

== ENCOUNTER 2017-06-23 10:30 | Observation (INO) ==
--- OUTSIDE RECORDS SUMMARY | 2017-06-23 10:57 | External Medical Summary | Referral Summary ---
:1935 Author [facility] Address [address] [place] [address] [place] [phone] Care Team Providers Name Role Phone Ricci Cuello Primary Care Physician Encounter VC Date(s): 02/05/16 - 02/05/16 [facility] [place] [phone] [place] Discharge Diagnosis: CKD (chronic kidney disease), stage III Discharge Diagnosis: Benign essential hypertension Discharge Diagnosis: Diabetes type 2, controlled Discharge Disposition: 01-Home or Self Care Attending Physician: Ricci Cuello DO Admitting Physician: Ricci Cuello DO Vital Signs Most recent to oldest [Reference Range]: 1 Temperature Tympanic [36.6-38.1 degC] 35.8 degC *LOW* (02/05/16 8:31 AM) Peripheral Pulse Rate [60-100 bpm] 67 bpm (02/05/16 8:31 AM) Blood Pressure [90-140/60-90 mmHg] 118/56 mmHg (02/05/16 8:31 AM) Problem List Condition Effective Dates Status Health Status Informant Allergic rhinitis(Confirmed) Resolved Arthritis(Confirmed) Resolved Benign essential hypertension Active (disorder)(Confirmed) CAD (coronary artery Resolved disease)(Confirmed) Chicken pox(Confirmed) Resolved CKD (chronic kidney disease), stage Active III(Confirmed) Coronary arteriosclerosis Active (disorder)(Confirmed) Diabetes mellitus(Confirmed) Resolved Erectile dysfunction(Confirmed) Resolved Hay fever(Confirmed) Resolved Hypercholesteremia(Confirmed) Resolved Hyperglycemia(Confirmed) Resolved Hypertension(Confirmed) Resolved Impotence of organic origin Active (disorder)(Confirmed) Kidney disease(Confirmed) Resolved Kidney stones(Confirmed) Resolved Measles(Confirmed) Resolved Mumps(Confirmed) Resolved Obesity(Confirmed) Active patient Pneumonia(Confirmed) Resolved Prostate pain(Confirmed) Resolved PsA(Confirmed) Resolved Pure hypercholesterolemia Active (disorder)(Confirmed) Diabetes type 2, Active controlled(Confirmed) Allergies, Adverse Reactions, Alerts Substance Reaction Severity Status iodine Active penicillin Active Medications aspirin 81 mg oral tablet, disintegrating 1 tabs, Oral, Daily Start Date: 01/02/14 Status: OrderedglipiZIDE 5 mg oral tablet 5 mg 1 tabs, Oral, BID, # 180 tabs, 3 Refill(s), 0.5 tabs Oral Daily Start Date: 07/03/15 Stop Date: 06/27/16 Status: OrderedGlucometer Lancets (DME) DME Item Lancet, Ultra Thin- 1 day a week, Fasting and 2 Hours PC, Supply Start Date: 01/02/14 Status: OrderedGlucometer strips (DME) DME Item Contour Test Strips- 1 day a week, Fasting and 2 Hours PC, # 1 Each, Supply Start Date: 01/02/14 Status: Orderedmetoprolol tartrate 25 mg oral tablet 0.5 tabs, Oral, TID, 0 Refill(s) Start Date: 01/03/14 Status: Orderednitroglycerin 0.4 mg sublingual tablet 1 tabs, SubLingual, q5min, as needed for chest pain, not to exceed 3 doses/15 min--if pain persists,seek medical attention Start Date: 01/02/14 Status: Orderedsimvastatin 20 mg oral tablet 1 tabs, Oral, Daily Start Date: 01/02/14 Status: Ordered Results Chemistry Most recent to oldest [Reference Range]: 1 Sodium Lvl [135-144 mEq/L] 139 mEq/L (02/05/16 9:05 AM) Potassium Lvl [3.5-5.2 mEq/L] 4.3 mEq/L (02/05/16 9:05 AM) Chloride [99-111 mEq/L] 107 mEq/L (02/05/16 9:05 AM) CO2 [23-31 mEq/L] 23 mEq/L (02/05/16 9:05 AM) AGAP [3-20] 9 (02/05/16 9:05 AM) BUN [8-26 mg/dL] 16 mg/dL (02/05/16 9:05 AM) Glucose Lvl [70-99 mg/dL] 216 mg/dL *HI* (02/05/16 9:05 AM) Creatinine Lvl [0.72-1.25 mg/dL] 1.50 mg/dL *HI* (02/05/16 9:05 AM) eGFR [>60 mL/min] 45 mL/min 1 *ABN* (02/05/16 9:05 AM) Calcium Lvl [8.9-10.5 mg/dL] 8.9 mg/dL (02/05/16 9:05 AM) Hgb A1c [4.1-5.6 %] [...] exts. Ordered: Office Visit Level 4 Est [id number] 2.Benign essential hypertension 1. BP is well controlled at this time. 2. Avoid excessive salt Ordered: Office Visit Level 4 Est 41030 3.Diabetes type 2, controlled 1. Repeat A1c today. 2. Continue with limiting his daily caloric intake 3. Continue with glipizide as previous. Ordered: Office Visit Level 4 Est 20080
--- OUTSIDE RECORDS SUMMARY | 2017-06-23 10:57 | External Medical Summary | Referral Summary ---
:1935 Author Organization [facility] Address [address] [place] [address] [place] [address] Care Team Providers Name Role Phone Ricci Cuello Primary Care Physician Encounter VC Date(s): 07/03/15 - 07/03/15 [facility] [address] [place] [address] Discharge Diagnosis: Benign essential hypertension Discharge Disposition: 01-Home or Self Care Attending Physician: Ricci Cuello DO Admitting Physician: Ricci Cuello DO Vital Signs Most recent to oldest [Reference Range]: 1 Temperature Tympanic [36.6-38.1 degC] 35.8 degC *LOW* (07/03/15 10:42 AM) Peripheral Pulse Rate [60-100 bpm] 64 bpm (07/03/15 10:42 AM) Blood Pressure [90-140/60-90 mmHg] 137/77 mmHg (07/03/15 10:42 AM) Problem List Condition Effective Dates Status Health Status Informant Allergic rhinitis(Confirmed) Resolved Arthritis(Confirmed) Resolved Benign essential hypertension Active (disorder)(Confirmed) CAD (coronary artery Resolved disease)(Confirmed) Chicken pox(Confirmed) Resolved Coronary arteriosclerosis Active (disorder)(Confirmed) Diabetes mellitus(Confirmed) Resolved Erectile dysfunction(Confirmed) Resolved Hay fever(Confirmed) Resolved Hypercholesteremia(Confirmed) Resolved Hyperglycemia(Confirmed) Resolved Hypertension(Confirmed) Resolved Impotence of organic origin Active (disorder)(Confirmed) Kidney disease(Confirmed) Resolved Kidney stones(Confirmed) Resolved Measles(Confirmed) Resolved Mumps(Confirmed) Resolved Obesity(Confirmed) Active patient Pneumonia(Confirmed) Resolved Prostate pain(Confirmed) Resolved PsA(Confirmed) Resolved Pure hypercholesterolemia Active (disorder)(Confirmed) Allergies, Adverse Reactions, Alerts Substance Reaction Severity [...] tabs, Oral, Daily Start Date: 01/02/14 Status: OrderedViagra 100 mg oral tablet 1 tabs, Oral, Bedtime (once a day), as needed for erectile dysfunction, 1 hour before sexual activity Start Date: 01/02/14 Status: Ordered Results Chemistry Most recent to oldest [Reference Range]: 1 Sodium Lvl [135-144 mEq/L] 141 mEq/L (07/03/15 11:47 AM) Potassium Lvl [3.5-5.2 mEq/L] 4.6 mEq/L (07/03/15 11:47 AM) Chloride [99-111 mEq/L] 107 mEq/L (07/03/15 11:47 AM) CO2 [23-31 mEq/L] 25 mEq/L (07/03/15 11:47 AM) AGAP [3-20] 9 (07/03/15 11:47 AM) BUN [8-26 mg/dL] 14 mg/dL (07/03/15 11:47 AM) Glucose Lvl [70-99 mg/dL] 118 mg/dL *HI* (07/03/15 11:47 AM) Creatinine Lvl [0.72-1.25 mg/dL] 1.33 mg/dL *HI* (07/03/15 11:47 AM) eGFR [>60 mL/min] 51 mL/min 1 *ABN* (07/03/15 11:47 AM) Calcium Lvl [8.9-10.5 mg/dL] 9.4 mg/dL (07/03/15 11:47 AM) Hgb A1c [4.1-5.6 %] [...] Plan Extracted from: Title: Diabetes type II, hypertension, CKD stage Author: Ricci Cuello DO Date : 07/03/15 III, coronary artery disease Assessment/Plan Benign essential hypertension 1. Blood pressures well controlled at this time. Continue with current regimen of medications. 2. Low salt diet recommended. 3. Daily exercise recommended. CAD (coronary artery disease) 1. Continue following up with cardiology on a yearly basis and with their recommendations. Ordered: Basic Metabolic Panel Hemoglobin A1c Office Visit Level 4 Est 97958 CKD (chronic kidney disease), stage III 1. [...] Hemoglobin A1c Office Visit Level 4 Est 43881 Diabetes type 2, uncontrolled 1. His A1c is poorly controlled with A1c of 7.1 in December 2014. 2. Increase glyburide to 5 mg twice a day. 3. Follow-up in one month for reevaluation. He is to check his blood sugars fasting 3 days per week. Ordered: Basic Metabolic Panel Hemoglobin A1c Office Visit Level 4 Est 65897 Orders: glipiZIDE, 5 mg 1 tabs, Oral, BID, # 180 tabs, 3 Refill(s), 0.5 tabs Oral Daily
--- OUTSIDE RECORDS SUMMARY | 2017-06-23 10:57 | External Medical Summary | Referral Summary ---
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 Discharge Diagnosis: Hypercholesteremia Discharge Diagnosis: Coronary heart disease Discharge Disposition: -Home or Self Care Attending Physician: Eliseo Landers MD Admitting Physician: Eliseo Landers MD Referring Physician: Mir Carlos MD Vital Signs Most recent to oldest [Reference Range]: 1 Peripheral Pulse Rate [60-100 bpm] 64 bpm (02/06/15 9:23 AM) Blood Pressure [90-140/60-90 mmHg] 116/70 mmHg (02/06/15 9:23 AM) Problem List Condition Effective [...] 01/02/14 Status: OrderedglipiZIDE 5 mg oral tablet 0.5 tabs, Oral, Daily, 0 Refill(s) Start Date: 01/29/14 Status: OrderedGlucometer Lancets (DME) DME Item Lancet, [...]
--- OUTSIDE RECORDS SUMMARY | 2017-06-23 10:57 | External Medical Summary | Referral Summary ---
:1935 Author Organization [facility] [place], Cardiology [address] [place] [address] Care Team Providers Name Role Phone Mir Carlos Primary Care Physician Encounter VC Date(s): 02/06/15 - 02/06/15 [facility] [place], [address] [place] [address] [place] Discharge Diagnosis: [...]
--- OUTSIDE RECORDS SUMMARY | 2017-06-23 10:57 | External Medical Summary | Referral Summary ---
:1935 Author Organization [facility] Address [address] [place] [address] [place] [address] Care Team Providers Name Role Phone Ricci Cuello Primary Care Physician Encounter VC Date(s): 11/05/15 - 11/05/15 [facility] [address] [place] [address] [place] Discharge Disposition: 01-Home or Self Care Attending Physician: Ricci Cuello DO Admitting Physician: Ricci Cuello DO Vital Signs Most recent to oldest [Reference Range]: 1 Temperature Tympanic [36.6-38.1 degC] 35.4 degC *LOW* (11/05/15 8:16 AM) Peripheral Pulse Rate [60-100 bpm] 72 bpm (11/05/15 8:16 AM) Blood Pressure [90-140/60-90 mmHg] 20/75 mmHg *LOW* (11/05/15 8:16 AM) Problem List Condition [...] Hemoglobin A1c Office Visit Level 3 Est 63637 DM type 2 causing CKD stage 3 1. His renal function is slightly improved compared to previous. 2. Avoid NSAIDs. 3. Decrease high protein and salty food diet. 4. Recheck renal function in 3 months. If no improvement or if worsening presentation then we may need him to see a agricultural purchasing agent. Ordered: Basic Metabolic Panel Office Visit Level 3 Est 72418 HTN (hypertension) 1. Recommendations as above. 2. Continue with same medication as previous. Follow-up in 3 months for reevaluation. Ordered: Basic Metabolic Panel Office Visit Level 3 Est 48447 Addendum by Ricci Cuello DO on November 04, Personally rechecked the patient's blood 2016 08:51:11 CDT pressure and it was 124/78. This continues to be acceptable.
--- OUTSIDE RECORDS SUMMARY | 2017-06-23 10:58 | External Medical Summary | Referral Summary ---
:1935 Author [facility] Address [address] [place] [address] [place] [address] Care Team Providers Name Role Phone Ricci Cuello Primary Care Physician Encounter VC Date(s): 08/05/15 - 08/05/15 [facility] [address] [place] [address] [place] Discharge Diagnosis: CKD (chronic kidney disease), stage III Discharge Diagnosis: Benign essential hypertension Discharge Diagnosis: Diabetes type 2, controlled Discharge Disposition: 01-Home or Self Care Attending Physician: Ricci Cuello DO Admitting Physician: Ricci Cuello DO Vital Signs Most recent to oldest [Reference Range]: 1 Temperature Tympanic [36.6-38.1 degC] 35.2 degC *LOW* (08/05/15 8:17 AM) Peripheral Pulse Rate [60-100 bpm] 65 bpm (08/05/15 8:17 AM) Blood Pressure [90-140/60-90 mmHg] 127/70 mmHg (08/05/15 8:17 AM) Problem List Condition Effective [...] type II, hypertension, CKD stage Author: Ricci Cuelol DO Date : 08/05/15 III Assessment/Plan Benign essential hypertension, Essential (primary) hypertension 1. Blood pressures well controlled at this time. 2. Low salt diet recommended. 3. Daily exercise recommended. Ordered: Comprehensive Metabolic Panel Office Visit Level 4 Est 48919 Chronic kidney disease, stage 3 (moderate), CKD [...] Metabolic Panel Office Visit Level 4 Est 73724 Diabetes type 2, controlled, Type 2 diabetes [...] Lipid Panel Office Visit Level 4 Est 01021
--- OUTSIDE RECORDS SUMMARY | 2017-06-23 10:58 | External Medical Summary | Continuity of Care Document ---
:1935 Author Organization Via [facility] Allergies Active Description Code Type Severity Reaction Onset Reported/ Identified Relationship Clinical to Patient Status Yes iodine NKMA N/A N/A 08/31/2013 Yes penicillin NKMA N/A N/A 08/31/2013 Medications There is no data. Problems Date Dx Attending Type Code Diagnosis Diagnosed By Coded 12/13/2015 Ricci Cuello Final R13.14 Dysphagia, pharyngoesophageal phase 12/25/2015 Anil Howell Final R13.10 Dysphagia, unspecified M 02/05/2016 Ricci Cuello Final E11.9 Type 2 diabetes mellitus without complications 02/05/2016 Ricci Cuello Final I10 Essential (primary) hypertension 02/05/2016 Ricci Cuello Final N18.3 Chronic kidney disease, stage 3 (moderate) 02/12/2016 Eliseo Landers Final E11.9 Type 2 diabetes mellitus without complications 02/12/2016 Eliseo Landers Final E78.00 Pure hypercholesterolemia, unspecified 02/12/2016 Eliseo Landers Final I10 Essential (primary) hypertension 02/12/2016 Eliseo Landers Final I25.10 Atherosclerotic heart disease of [place] coronary artery without angina pectoris 02/12/2016 Eliseo Landers Final N18.3 Chronic kidney disease, stage 3 (moderate) 08/11/2016 Ricci Cuello Final E11.9 Type 2 diabetes mellitus without complications 08/11/2016 Ricci Cuello Final I10 Essential (primary) hypertension 08/11/2016 Ricci Cuello Final N18.3 Chronic kidney disease, stage 3 (moderate) 02/11/2017 Ricci Cuello Final E11.22 Type 2 diabetes mellitus with diabetic chronic kidney disease 02/11/2017 Ricci Cuello Final E11.9 Type 2 diabetes mellitus without complications Procedures Code Description [place] [address] Office or 11/05/2015 other outpatient visit for the evaluation and management of an established patient, which requires at least 2 of these 3 cruz components: An expanded problem focused history; An expanded prob 08462 Office or 12/13/2015 other outpatient visit for the evaluation and management of an established patient, which requires at least 2 of these 3 cruz components: An expanded problem focused history; An expanded prob 98942 Office or 02/05/2016 other outpatient visit for the evaluation and management of an established patient, which requires at least 2 of these 3 cruz components: A detailed history; A detailed examination; Medical d 07122 Office or 02/12/2016 other outpatient visit for the evaluation and management of an established patient, which requires at least 2 of these 3 cruz components: An expanded problem focused history; An expanded prob 40900 Office or 08/11/2016 other outpatient visit for the evaluation and management of an established patient, which requires at least 2 of these 3 cruz components: A detailed history; A detailed examination; Medical d Office or 02/11/2017 other outpatient visit for the evaluation and management of an established patient, which requires at least 2 of these 3 cruz components: A detailed history; A detailed examination; Medical d Results Test Result Range Comprehensive Metabolic Panel (CMP) - 02/09/17 07:48 Albumin 3.9 g/dL 3.4-4.8 Alkaline Phosphatase 66 U/L 40-150 ALT (SGPT) 13 U/L 0-55 Anion Gap 9 mEq/L 3-20 AST (SGOT) 17 U/L 5-34 Bilirubin Total 1.0 mg/dL 0.2-1.2 BUN 12 mg/dL 8-26 Calcium 9.2 mg/dL 8.4-10.2 Chloride 109 mEq/L 99-111 CO2 23 mEq/L 23-31 Creatinine 1.41 mg/dL 0.72-1.25 Globulin 2.8 g/dL 1.8-4.0 Glucose 133 mg/dL 70-99 Potassium 4.4 mEq/L 3.5-5.2 Protein 6.7 g/dL 6.0-7.6 Sodium 141 mEq/L 135-144 eGFR - 02/09/17 07:48 eGFR 48 mL/min >60 Hemoglobin A1C - 02/09/17 07:48 Hemoglobin A1C 6.8 % 4.1-5.6 Estimated Average Glucose - 02/09/17 07:48 Estimated Average Glucose 148.5 mg/dL Encounters ACCT No. Visit Discharge Status Pt. Type Provider Facility Loc./Unit Complaint Date/Time [id number] 06/05/2013 06/05/2013 CLS Outpatie 08:53:00 23:59:59 nt [id number] 02/11/2017 02/11/2017 DIS Outpatie Teck, Via [facility] New FM GO OVER LABS 443 08:32:00 23:59:00 nt Ricci [facility] [id number] 02/09/2017 02/09/2017 DIS Outpatie Teck, Via [facility] New lab 428 07:43:00 23:59:00 nt [facility] [id number] 02/09/2017 02/09/2017 DIS Outpatie Teck, Via [facility] New lab 400 07:30:00 23:59:00 nt Ricci [facility] [id number] 08/11/2016 08/11/2016 DIS Outpatie Teck, Via [facility] New FM DIABETES.CHOL 794 08:11:00 23:59:00 nt Ricci Ibarra ESTEROL.BLOOD Clinic PRESSURE MED CHECK [id number] 02/12/2016 02/12/2016 DIS Outpatie Landers, Via [facility] New 1 year miguelito 951 10:29:00 23:59:00 nt Eliseo Leei Card Clinic [id number] 02/05/2016 02/05/2016 DIS Outpatie Teck, Via [facility] New FM 3 month CDM 396 08:01:00 23:59:00 nt Ricci Ibarra DM HTN Clinic [id number] 12/25/2015 12/25/2015 DIS Outpatie Lynda Via [facility] New mid 877 10:37:00 23:59:00 Anil zaragoza Surg esophageal Clinic dysphagia [id number] 12/13/2015 12/13/2015 DIS Outpatie Teck, Via [facility] New FM TCPA 656 14:00:00 23:59:00 nt Ricci Ibarra difficulty Clinic swallowing [id number] 11/05/2015 11/05/2015 DIS Outpatie Teck, Via [facility] New FM 3 month CDM 790 07:57:00 23:59:00 nt Ricci Leei DM Clinic [id number] 08/05/2015 08/05/2015 DIS Outpatie Teck, Via [facility] New FM 1 month CDM 361 08:11:00 23:59:00 nt Ricci Ibarra DM Clinic uncontrolled BS CKD -3 [id number] 07/03/2015 07/03/2015 DIS Outpatie Teck, Via [facility] New FM GET EST FROM 942 09:34:00 23:59:00 nt Ricci GOMES Clinic [id number] 05/28/2015 05/28/2015 DIS Outpatie Lennie, Via [facility] New FM DIFFICULTY 963 14:05:00 23:59:00 nt Victor Manuel Ibarra SWALLOWING X A Clinic 4 DAYS [id number] 02/06/2015 02/06/2015 CLS Outpatie Anshul, Via [facility] New 1 year miguelito 368 09:14:00 23:59:59 nt Eliseo Ramirez Clinic
--- OUTSIDE RECORDS SUMMARY | 2017-06-23 10:58 | External Medical Summary | Referral Summary ---
:1935 Author Organization [facility] [place], Cardiology [address] [place] [address] Care Team Providers Name Role Phone Mir Carlos Primary Care Physician Encounter VC Date(s): 02/06/15 - 02/06/15 [facility] [place], [address] [place] [address] [place] Discharge Diagnosis: [...]
--- OUTSIDE RECORDS SUMMARY | 2017-06-23 10:58 | External Medical Summary | Referral Summary ---
:1935 Author [facility] Address [address] [place] [address] [place] [address] Care Team Providers Name Role Phone Ricci Cuello Primary Care Physician Encounter VC Date(s): 05/28/15 - 05/28/15 [facility] [address] [place] [address] [place] Discharge Disposition: 01-Home or Self Care Attending Physician: Victor Manuel Hogue APRN Admitting Physician: Victor Manuel Hogue APRN Vital Signs Most recent to oldest [Reference Range]: 1 Peripheral Pulse Rate [60-100 bpm] 56 bpm *LOW* (05/28/15 2:31 PM) Blood Pressure [90-140/60-90 mmHg] 108/68 mmHg (05/28/15 2:31 PM) SpO2 95 % (05/28/15 [...]
--- OUTSIDE RECORDS SUMMARY | 2017-06-23 10:58 | External Medical Summary | Referral Summary ---
:1935 Author Organization [facility] [place], Cardiology [address] [place] [address] Care Team Providers Name Role Phone Mir Carlos Primary Care Physician Encounter VC Date(s): 02/06/15 - 02/06/15 [facility] [place], [address] [place] [address] [place] Discharge [...]
--- OUTSIDE RECORDS SUMMARY | 2017-06-23 10:58 | External Medical Summary | Referral Summary ---
:1935 Author Organization [facility] [place], Cardiology [address] [place] [address] Care Team Providers Name Role Phone Mir Carlos Primary Care Physician Encounter VC Date(s): 02/06/15 - 02/06/15 [facility] [place], [address] [place] [address] [place] Discharge Diagnosis: [...]
--- OUTSIDE RECORDS SUMMARY | 2017-06-23 10:58 | External Medical Summary | Referral Summary ---
:1935 Author Organization [facility] [place], Cardiology [address] [place] [address] Care Team Providers Name Role Phone Mir Carlos Primary Care Physician Encounter VC Date(s): 02/06/15 - 02/06/15 [facility] [place], [address] [place] [address] [place] Discharge Diagnosis: [...]
--- OUTSIDE RECORDS SUMMARY | 2017-06-23 10:58 | External Medical Summary | Referral Summary ---
:1935 Author Organization [facility] Address [address] [place] [address] [place] [address] Care Team Providers Name Role Phone Ricci Cuello Primary Care Physician Encounter VC Date(s): 12/13/15 - 12/13/15 [facility] [place] [place] [address] [place] Discharge Diagnosis: Esophageal dysphagia Discharge Disposition: 01-Home or Self Care Attending Physician: Ricci Cuello DO Admitting Physician: Ricci Cuello DO Vital Signs Most recent to oldest [Reference Range]: 1 Temperature Tympanic [36.6-38.1 degC] 34.8 degC *LOW* (12/13/15 2:18 PM) Peripheral Pulse Rate [60-100 bpm] 68 bpm (12/13/15 2:18 PM) Blood Pressure [90-140/60-90 mmHg] 119/72 mmHg (12/13/15 2:18 PM) Problem List Condition Effective [...] Most recent to oldest [Reference Range]: 1 Estimated Creatinine Clearance 41.82 mL/min (12/13/15 2:25 PM) Immunizations Vaccine Date Refusal [...] EGD. Ordered: Office Visit Level 3 Est 29914
--- OUTSIDE RECORDS SUMMARY | 2017-06-23 10:58 | External Medical Summary | Referral Summary ---
:1935 Author Organization [facility] [place], Cardiology Address [address] [place] [address] [place] [address] Care Team Providers Name Role Phone Ricci Cuello Primary Care Physician Encounter VC Date(s): 02/06/15 - 02/06/15 [facility] [place], Cardiology [address] [place] [address] [place] [phone] [place] Discharge Diagnosis: Essential [...]
--- OUTSIDE RECORDS SUMMARY | 2017-06-23 10:58 | External Medical Summary | Referral Summary ---
:1935 Author Organization [facility] [place], Cardiology Address [address] [place] [address] [place] [address] Care Team Providers Name Role Phone Ricci Cuello Primary Care Physician Encounter VC Date(s): 02/12/16 - 02/12/16 [facility], [facility], Cardiology [address] [place] [address] [place] [phone] [place] Discharge Diagnosis: Coronary arteriosclerosis (disorder) Discharge Diagnosis: Pure hypercholesterolemia (disorder) Discharge Diagnosis: CKD (chronic kidney disease), stage III Discharge Diagnosis: Diabetes type 2, controlled Discharge Diagnosis: Benign essential hypertension Discharge Disposition: -Home or Self Care Attending Physician: Eliseo Landers MD Admitting Physician: Eliseo Landers MD Vital Signs Most recent to oldest [Reference Range]: 1 Peripheral Pulse Rate [60-100 bpm] 64 bpm (02/12/16 10:38 AM) Blood Pressure [90-140/60-90 mmHg] 126/64 mmHg (02/12/16 10:38 AM) Problem List Condition Effective [...] Patient Education Author: Eliseo Landers MD Date: 02/12/16 Nephrology Chronic Kidney Disease Chronic kidney disease [...] chronic kidney disease does not go away. However , it can often be controlled, and those [...] be detected and diagnosed by tests, including blood , urine, imaging, or kidney biopsy tests. TREATMENT [...] Do not take any new medicines (prescription, [id number], or nutritional supplements) unless approved by your health care provid er. Many medicines can worsen your kidney damage [...] well or get worse. FOR MORE INFORMATION [place] [employer]: www.aakp.org National Kidney Foundation: www.kidney.org [employer]: www.akfinc.org [employer] [facility]: www.lifeoptions.org and www.kidneyschool.org This information is not intended to replace advice given to you by your health care provider. Make sure you discuss any questions you have with your health care provider. Document Released: 01/26/2009 Document Revised: 05/10/2015 Document Reviewed: 12/16/2012 [employer] Patient Education 2016 [employer] No follow up information was provided.
--- OUTSIDE RECORDS SUMMARY | 2017-06-23 10:58 | External Medical Summary | Referral Summary ---
:1935 Author Organization [facility] Address [address] [place] [address] [place] [id number] Care Team Providers Name Role Phone Ricci Cuello Primary Care Physician Encounter VC Date(s): 12/25/15 - 12/25/15 [facility] [address] [place] [address] [place] [phone] [place] Discharge Diagnosis: Dysphagia Discharge Disposition: 01-Home or Self Care Attending Physician: Anil Nash MD Vital Signs Most recent to oldest [Reference Range]: 1 Temperature Tympanic [36.6-38.1 degC] 36 degC *LOW* (12/25/15 10:44 AM) Peripheral Pulse Rate [60-100 bpm] 64 bpm (12/25/15 10:44 AM) Blood Pressure [90-140/60-90 mmHg] 126/80 mmHg (12/25/15 10:44 AM) SpO2 95 % (12/25/15 [...] get to the stomach. Other symptoms include regurgi tating food, noises coming from the throat, chest discomfort with swallowing, and a feeling of fullness or the feeling of something being stuck in your throat when swallowing. When blockage in your thro at is complete, it may be associated with [...] ( contrast medium) while X-rays are taken. Somet imes a flexible telescope that is inserted down [...] You are unable to swallow your own saliva . You are having shortness of breath or a fever, or both. You have a hoarse voice along with [...] Released: 04/16/2001 Document Revised: 05/10/2015 Document Reviewed: 10/06/2013 [facility] 2016 [place]. No follow up information was provided. Extracted from: Title: Office Visit Note Author: Anil Nash MD Date: 12/25/15 Assessment/Plan 1.Dysphagia Ordered: Office Visit Level 4 New [address] Plan: Esophagram. Await Radiographic Results and Proceed Accordingly . I did review the patient's chart including office note performed by his PCP from December 13, 2015. I did see the patient had underwent a prior modified barium swallowback on May 31, 2015. [facility]in regards to hismodified barium swallow. No aspiration was seen. Esophagus was not evaluated. The speech pathologist statedthe patient to take smaller sips of thin liquidsusing secondary dry swallow to clear any real residue remaining. If symptoms persist he may benefit from short-term outpatient speech therapyto instruct patient's follo wing strategies. Next I discussedthis dysphagia as an entity with the patient. I informed the patient that as a general there are 2categories for the underlying etiology for dysphagia. One is that of poor esophageal motilityand the second is secondary to a"narrowing of thelumen of the esophagus". Typically patients witha motility disorder will state that they have problems with dys phagiaequally with both solids and liquids. Patient falls into this category. People who tend to have a narrowing of the esophageal lumenstates typically that theredysphagia is worse with avani ids and liquids. I informed the patient that with hisadvanced age, history of dysphagia occurring both with solids and liquidsIwould recommend that we initially proceed with an esophagram for f urther evaluation. I informed the patient thatfurther recommendations will depend upon his radiographic results. If noalso esophageal abnormalities are noted and he is found to have tertiary con tractionsendoscopic evaluation will not berecommended. If on the other hand there is some type of underlying mucosal abnormality noted on his esophagram we'll then proceedwith endoscopic evaluat ion. The above proposedalgorithm was discussed with the patient. Patient understood and agreed.
--- OUTSIDE RECORDS SUMMARY | 2017-06-23 10:58 | External Medical Summary | Referral Summary ---
:1935 Author Organization [facility] [place], [facility] [address] [place] [address] Care Team Providers Name Role Phone Mir Carlos Primary Care Physician Encounter VC Date(s): 02/06/15 - 02/06/15 [facility] [place], [address] [place] [phone] [place] Discharge Diagnosis: [...]
[2017-06-23] MEDS ORDERED: AZITHROMYCIN IV 500 MG in NS 250ml 250 ML IV ONE (11:17)
[2017-06-23] MEDS ORDERED: METHYLPREDNISOLONE SOD SUCC 125mg/2ml INJECTION IVP ONE (11:17)
--- NOTE | 2017-06-23 11:20 | Emergency Department Report ---
Asthma HPI - General Chief Complaint: Upper Respiratory Infection Stated Complaint: soa,cough Time Seen by Provider: 06/23/17 10:50 Source: patient, RN notes reviewed, old records reviewed Mode of arrival: ambulatory Limitations: no limitations - History of Present Illness HPI Narrative: 82yo man presents to the ER for evaluation of SOA. Pt developed a productive cough, congestion, rhinorrhea, and fatigue yesterday. Today, pt has SOA. Denies any h/o asthma or COPD. Used to smoke, but quit in 1969. Has not tried anything to improve his sx. Has no COPD meds. MD complaint: shortness of breath Onset (ago): hour(s) Severity: severe Context: recent URI Associated symptoms: productive cough - Related Data Home Medications Medication Instructions Recorded Confirmed Simvastatin [Zocor] 40 mg PO HS #0 11/13/09 06/23/17 Aspirin [Adult Aspirin Regimen] 81 mg PO HS 06/23/17 06/23/17 GlipiZIDE [Glucotrol] 5 mg PO BID 06/23/17 06/23/17 Metoprolol Tartrate 50 mg PO TID 06/23/17 06/23/17 Previous Rx's Medication Instructions Recorded Nitroglycerin [Nitrostat] 0.4 mg SL Q5MIN PRN #20 tab 10/22/13 Allergies Allergy/AdvReac Type Severity Reaction Status Date / Time iodine Allergy Unknown Verified 06/23/17 10:52 Penicillins Allergy Unknown Verified 06/23/17 10:52 Review of Systems All systems: reviewed and negative except as stated Constitutional: Reports: as per HPI, fever, weakness. Denies: chills, weight change, night sweats ENT: Reports: as per HPI, congestion. Denies: ear pain, throat pain, dental pain, hearing loss, epistaxis, dysphagia Respiratory: Reports: as per HPI, cough, dyspnea, wheezes. Denies: hemoptysis, stridor Musculoskeletal: Reports: as per HPI. Denies: back pain, joint swelling, arthralgia, myalgia PFS Patient Stated Medical History Coronary Artery Disease Yes Bronchitis Yes Pneumonia Yes Hx Benign Prostatic Yes Hyperplasia Hx Renal Disease Yes Medical History Updates: CAD. NIDDM. HTN. HL. Angina - Social History Smoking status: Former smoker Physical Exam - Limitations Limitations: no limitations - General General appearance: alert, in no apparent distress, obese - Head Head exam: atraumatic, normocephalic, normal inspection - Eye Eye exam: Present: normal appearance, PERRL, EOMI. Absent: scleral icterus - ENT ENT exam: Present: mucous membranes moist, TM's normal bilaterally, normal external ear exam. Absent: normal exam, normal oropharynx (Erythema with PND) - Neck Neck exam: Present: normal inspection, full ROM, trachea midline. Absent: tenderness, lymphadenopathy - Chest Chest inspection: Present: normal inspection, symmetric chest wall rise. Absent : tenderness, rash - Respiratory Respiratory exam: Present: respiratory distress, wheezes (Throughout), prolonged expiratory phase. Absent: normal lung sounds bilaterally, stridor, crackles - Cardiovascular Cardiovascular exam: Present: regular rate, normal rhythm, normal heart sounds - Abdominal Exam Abdominal exam: Present: soft, normal bowel sounds. Absent: distention, tenderness, guarding, rebound, rigidity - Extremities Exam Extremities exam: Present: normal inspection, full ROM, normal capillary refill. Absent: tenderness, joint swelling - Skin Skin exam: Present: warm, dry, intact. Absent: rash - Neurological Exam Neurological exam: Present: alert, oriented X3, CN II-XII intact, normal gait - Psychiatric Psychiatric exam: Present: normal affect, normal mood Course - Consultations Consultation #1: Hospitalist: Will admit to hospital for hypoxia. Time: 14:00 Vital Signs Temperature 97.8 F 06/23/17 10:35 Pulse Rate 75 06/23/17 10:35 Respiratory Rate 22 06/23/17 10:35 Blood Pressure 157/77 H 06/23/17 10:35 Pulse Oximetry 91 06/23/17 10:35 Temperature 97.8 F 06/23/17 10:35 Pulse Rate 88 06/23/17 13:30 Respiratory Rate 20 06/23/17 13:15 Blood Pressure 122/60 06/23/17 13:30 Pulse Oximetry 95 06/23/17 14:02 Dyspnea - MDM Narrative Medical decision making narrative: After getting labs/rads back, pt found to be consistently desatting into the low 80s. O2 by NC applied with return of pts SaO2 to low 90s on 2L. Will contact hospitalist for likely admission to support SaO2. Will admit to the hospital for hypoxia. Pt voiced understanding of dx, prognosis, tx, and f/u need. - Differential Diagnosis Differential diagnosis: Likely: Acute exacerbation, Status asthmaticus, Acute asthmatic bronchitis, Pneumonia, COPD exacerbation, Pneumothorax. Unlikely: PE , Pulmonary edema systolic, Pulmonary edema dystolic, ARDS, Foreign body in trachea - Medical Records Attestation: I reviewed the patient's medical records. - Lab Data Attestation: I reviewed the patient's lab results. Result diagrams: 06/23/17 11:52 06/23/17 11:52 Lab Results 06/23/17 06/23/17 06/23/17 Range/Units 11:52 11:52 11:53 WBC 7.8 (4.5-11.0) T/MM3 RBC 5.71 (4.50-5.90) M/MM3 Hgb 16.1 (13.5-17.5) GM/DL Hct 49.1 (41-53) % MCV 86.0 (80-100) UM3 MCH 28.2 (26-34) UUG MCHC 32.8 (31-37) GM/DL RDW Std Deviation 42.9 (36.9-50.2) FL Plt Count 225 (130-400) T/MM3 MPV 9.3 L (9.4-12.4) UM3 Immature Gran % (Auto) 0.4 (0.0-0.5) % Neut % (Auto) 55.7 (33-66) % Lymph % (Auto) 23.7 (23-45) % [place] % (Auto) 16.3 H (0-9.0) % Eos % (Auto) 3.3 (0-4) % Baso % (Auto) 0.6 (0-2) % Neut # (Auto) 4.3 (1.8-7.7) T/MM3 Lymph # (Auto) 1.9 (1-4.8) T/MM3 [place] # (Auto) 1.3 H (0-0.8) T/MM3 Eos # (Auto) 0.3 (0-0.5) T/MM3 Baso # (Auto) 0.1 (0-0.2) T/MM3 Abs Immat Gran (auto) 0.03 (0.00-0.03) T/MM3 Turbidity < 20 (0-20) Sodium 144 (134-144) MEQ/L Potassium 4.4 (3.6-5) MEQ/L Chloride 105 (98-107) MEQ/L Carbon Dioxide 24 (22-30) MEQ/L Anion Gap 15 (5-15) MEQ/L BUN 14.0 (9-20) MG/DL Creatinine 1.4 (0.8-1.5) MG/DL GFR Calculation 48 BUN/Creatinine Ratio 10 (6-26) RATIO Glucose 98 (75-110) MG/DL Calculated Osmolality 278 (261-280) MOSM/KG Calcium 9.4 (8.4-10.2) MG/DL Icterus Index < 2 (0-7) Troponin I < 0.012 (0-0.12) ng/ml Specimen Hemolysis < 15 (0-25) Influenza Type A (PCR) Negative (Negative) Influenza Type B (PCR) Negative (Negative) - Radiology Data Attestation: I reviewed the patient's radiology results. CXR: Stable appearance of the chest without acute cardiopulmonary disease. - EKG Data EKG #1 EKG attestation: Yes: I reviewed and interpreted this EKG. EKG shows normal: sinus rhythm, axis, QRS complexes Heart block present: 1st Degree Interpretation: nonspecific ST-T wave changes Disposition Clinical Impression: Hypoxia URI (upper respiratory infection) Qualifiers: URI type: unspecified viral URI Qualified Code(s): J06.9 - Acute upper respiratory infection, unspecified Disposition: 02 To [facility] Print Language: [place] Condition: Improved Prescriptions: No Action Simvastatin [Zocor] 40 mg PO HS #0 Nitroglycerin [Nitrostat] 0.4 mg SL Q5MIN PRN #20 tab PRN Reason: CHEST PAIN GlipiZIDE [Glucotrol] 5 mg PO BID Aspirin [Adult Aspirin Regimen] 81 mg PO HS Metoprolol Tartrate 50 mg PO TID Referrals: Mir Carlos MD [Physician] - Ricci Cuello DO [Family Provider] - Time of Disposition: 14:05 - Seen By: physician
--- NOTE | 2017-06-23 11:52 | XRay Report ---
INDICATION: Dyspnea PROCEDURE: CHEST 2-VIEWS UPRIGHT (PA & LAT) Encounter: Initial Comparison: July 26, 2016 Findings: The lungs are stable in appearance without new focal airspace consolidation. There is no pleural effusion or pneumothorax. The heart size, pulmonary vascularity and mediastinal contours are unchanged. Prior CABG. IMPRESSION: Stable appearance of the chest without acute cardiopulmonary disease. .
[2017-06-23] MEDS: SALINE FLUSH 10ml SYRINGE IVF PRN ×2 (12:06→16:39)
[2017-06-23] MEDS ORDERED: NS FLUSH BAG 500ml IV PRN (12:08)
[2017-06-23] MEDS: ALBUTEROL/IPRATROPIUM 2.5mg-0.5mg/3ml NEB AEROSOL SCH ×4 (12:26→20:05)
[2017-06-23] MEDS ORDERED: NS 1,000 ML IV SCH (15:15)
--- NOTE | 2017-06-23 15:38 | History & Physical Report ---
History of Present Illness Date: 06/23/17 Chief complaint: cough, shortness of breath HPI: Mr Dobson is a pleasant 82 yr old male presented to the emergency room today for shortness of breath and cough. Patient states he began having upper respiratory congestion, rhinorrhea, fatigue with diarrhea 2 days ago. Symptoms have worsened today and he is having increased shortness of breath with exertion as well as cough. Acute workup was performed in the emergency room. CBC was normal, chemistry panel also normal, proBNP also normal as well as a negative troponin. Influenza A and B were both negative. Chest x-ray was negative for acute cardiopulmonary disease. Patient did have an episode of hypoxia at which time room air saturations decreased to 85%. Patient is quite symptomatic with dyspnea whenever he is lying down. Given his clinical symptoms and hypoxia. The hospitalist services were contacted and accepted patient for outpatient observation for further evaluation and treatment. Review of Systems All systems PM: 10-point ROS was reviewed, no additional remarkable complaints except - Constitutional Constitutional: Present: fatigue - Respiratory Respiratory: Present: cough, dyspnea Past Medical History Medical History Updates: Coronary artery disease. Ddo-cuzeand-[id number] diabetes. HTN. Hyperlipidemia. BPH. 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 Lithotripsy. Tonsillectomy Family History Updates: Family history positive for diabetes and coronary artery disease - Social History Smoking status: Former smoker (quit smoking in 1969) Substance use type: does not use Alcohol intake frequency: does not drink Housing: house Current occupational status: retired ([employer]) Social history: Patient resides independently in [place], [place]. He does have adult children nearby. Primary care provider is Dr. 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 Landers, however, he has not seen him in a long time. Medications Home Medications Medication Instructions Recorded Confirmed Type Aspirin [Adult Aspirin Regimen] 81 mg PO HS 06/23/17 06/23/17 History Atorvastatin Calcium 20 mg PO HS 06/23/17 06/23/17 History GlipiZIDE [Glucotrol] 5 mg PO BID 06/23/17 06/23/17 History Metoprolol Tartrate 50 mg PO TID 06/23/17 06/23/17 History Allergies Allergy/AdvReac Type Severity Reaction Status Date / Time iodine Allergy Unknown Verified 06/23/17 10:52 Penicillins Allergy Unknown Verified 06/23/17 10:52 Exam Vital Signs: Temperature 97.8 F 02/21/18 10:35 Pulse Rate 88 06/23/17 13:30 Respiratory Rate 20 06/23/17 13:15 Blood Pressure 122/60 06/23/17 13:30 Pulse Oximetry 95 06/23/17 14:02 Telemetry Rhythm: Sinus Rhythm - Constitutional Present: no acute distress, well nourished, well developed - Routine HEENT Exam Eye: Present: EOMI ENT: Present: mucous membranes moist, dentition normal - Routine Respiratory Exam Present: wheezes (slight expiratory wheeze) - Routine Cardiovascular Exam Present: RRR, S1, S2. Absent: murmur - Routine Abdominal Exam Present: soft, normoactive bowel sounds, non distended. Absent: tenderness - Routine Extremities Exam Present: no edema, pulses intact - Routine Back/Spine/Pelvis Exam Back/Spine: Present: full ROM - Routine Skin Exam Present: intact, dry, warm - Routine Neurological Exam Present: alert, oriented X3, CN II-XII intact, moving all extremities - Routine Psychiatric Exam Present: normal affect, cooperative Results - Labs CBC & Chem 7: 06/23/17 11:52 06/23/17 11:52 Assessment and Plan (1) Hypoxia Current visit: Yes Status: Acute Assessment and Plan: Impression Hypoxia-episodal- RA 85% Upper respiratory congestion DM HTN BPH Plan Admit patient to outpatient observation under the care of Dr. Oliver for episodic hypoxia, with URI congestion Patient does feel that his dyspnea and cough. He improved following a DuoNeb breathing treatment. We will order DuoNeb 4 times a day. Will check viral respiratory panel Nature continuous oxygen saturations and utilize oxygen as needed to keep sats greater than 90%. Mucinex and recall a cough drops as needed At this point, clinically, as well as the laboratories patient does not appear to have a bacterial process. Will hold off on antibiotic therapy at this time. Normal saline at 100 ML per hour for gentle hydration. Recheck CBC and BMP tomorrow morning to follow blood counts, renal function and electrolytes Will discuss further orders and plan of care with attending, Dr. Oliver At time of discharge medical care will return to primary care provider, Dr Cuello 06/23/2017-7 PM-I reviewed this chart, the patient history, and the CENTR[employer]PERVISOR's/PA's documented findings as above. We discussed and formulated the assessment and plan as above with the additions below.-Dr. Oliver The patient was seen this evening in his room. He is currently on room air. He states he is feeling better with his breathing. He is felt poorly for 3 days with cough, shortness of breath, and poor appetite. He has also been fatigued. Viral respiratory panel was positive for RSV. The patient was hypoxic in the emergency room but now has a normal oxygen saturation on room air. He denies any chest pain. He states he has pain in his upper abdomen that he thinks is from coughing. Pain is not severe. He denies any history of lung disease. He is a former smoker but quit about 50 years ago. On exam he is alert and oriented and in no acute distress. Chest reveals very faint end expiratory wheezes. Cardiovascular reveals a regular rate and rhythm. Abdomen is soft and nontender. Extremities are free of edema. Impression and plan RSV respiratory infection We'll add Tessalon Perles for cough Intermittent hypoxia-currently improved post breathing treatments We'll DC IV fluids when current bag is empty Reevaluate tomorrow, hopefully the patient will be doing well enough for discharge. DVT Prophylaxis: SCD's Resuscitation Status: Full Code - Time spent with patient Time with patient PN: 50 minutes - Physician Narrative Narrative: Date: 06/23/17 Time: 1532 Hospital Course Summary Disclaimer: The visit summary below is not to be considered part of the above Progress Note. Hospital Course: Impression Hypoxia-episodal- RA 85% Upper respiratory congestion DM HTN BPH Plan Admit patient to outpatient observation under the care of Dr. Oliver for episodic hypoxia, with URI congestion Patient does feel that his dyspnea and cough. He improved following a DuoNeb breathing treatment. We will order DuoNeb 4 times a day. Will check viral respiratory panel Nature continuous oxygen saturations and utilize oxygen as needed to keep sats greater than 90%. Mucinex and recall a cough drops as needed At this point, clinically, as well as the laboratories patient does not appear to have a bacterial process. Will hold off on antibiotic therapy at this time. Normal saline at 100 ML per hour for gentle hydration. Recheck CBC and BMP tomorrow morning to follow blood counts, renal function and electrolytes Will discuss further orders and plan of care with attending, Dr. Oliver At time of discharge medical care will return to primary care provider, Dr Cuello
[2017-06-23] MEDS ORDERED: MENTHOL COUGH DROPS (RICOLA) MM PRN (15:50)
[2017-06-23] MEDS ORDERED: NITROGLYCERIN 0.4 MG SUBLINGUAL TABLET SL PRN (15:51)
[2017-06-23] MEDS: GLIPIZIDE 5 MG PO SCH (17:45)
[2017-06-23] MEDS: BENZONATATE 100 MG CAPSULE PO SCH (20:25)
[2017-06-23] MEDS: GUAIFENESIN 400MG TABLET PO SCH (20:26)
[2017-06-23] MEDS: POM METOPROLOL TARTRATE 100mg TABLET PO SCH (20:26)
[2017-06-23] MEDS ORDERED: POM ASPIRIN *EC* 81 MG TABLET PO SCH (21:00)
[2017-06-23] MEDS ORDERED: SIMVASTATIN 40 MG TABLET PO SCH (21:00)
[2017-06-23] MEDS ORDERED: POM ATORVASTATIN 40 MG TABLET PO SCH (21:00)
[2017-06-24] MEDS: ALBUTEROL/IPRATROPIUM 2.5mg-0.5mg/3ml NEB AEROSOL SCH ×2 (07:29→10:39)
[2017-06-24 07:35] VITALS: RESP 18
[2017-06-24 07:52] VITALS: BP 139/67; TEMP 96.8
[2017-06-24] MEDS: GLIPIZIDE 5 MG PO SCH (07:59)
[2017-06-24] MEDS: BENZONATATE 100 MG CAPSULE PO SCH (08:00)
[2017-06-24] MEDS: GUAIFENESIN 400MG TABLET PO SCH (08:00)
[2017-06-24] MEDS: POM METOPROLOL TARTRATE 100mg TABLET PO SCH (08:01)
[2017-06-24 08:58] VITALS: PULSE 77
[2017-06-24 10:43] VITALS: O2SAT 93
--- NOTE | 2017-06-24 11:29 | Progress Note ---
- Date 06/24/17 Subjective: F/U: Hypoxia-episodal- RA 85%, RSV, Upper respiratory congestion Doing much better today. Breathing easier, still some cough/congestion but not as problematic. Not feeling SOA. Strength improving-able to ambulate better. Not feeling dizzy/unsteady with positional changes. Eating well. No ab pain. Urinating well. No f/c. Feels ready to go home. Objective Vital signs: Temperature 96.8 F 06/24/17 07:00 Pulse Rate 77 06/24/17 08:00 Respiratory Rate 18 06/24/17 10:39 Blood Pressure 139/67 06/24/17 07:00 Pulse Oximetry 93 06/24/17 10:39 Height/Weight/BMI: Height 1.7 m Weight 86.3 kg Body Mass Index 29.5 - Constitutional Present: well nourished, well developed, average body habitus, cooperative - Routine HEENT Exam Head: Present: normocephalic, atraumatic Eye: Present: EOMI, PERRL ENT: Present: mucous membranes moist - Routine Respiratory Exam Present: decreased breath sounds. Absent: rales, respiratory distress, rhonchi , stridor, wheezes, crackles - Routine Cardiovascular Exam Present: RRR, no murmur - Routine Abdominal Exam Present: soft, normoactive bowel sounds, non distended, non tender. Absent: guarding - Routine Extremities Exam Present: no edema, pulses intact. Absent: cyanosis, clubbing Comments: SCD in place - Routine Musculoskeletal Exam Musculoskeletal: Present: no clubbing or cyanosis, normal strength - Routine Skin Exam Present: dry, warm - Routine Neurological Exam Present: alert, oriented X3, CN II-XII intact, moving all extremities, vision grossly intact, hearing grossly intact, normal speech. Absent: motor deficit, altered mental status - Routine Psychiatric Exam Present: normal affect, normal thought process, cooperative, good insight, good judgment Results - Labs CBC & Chem 7: 06/24/17 04:43 06/24/17 04:43 Assessment and Plan (1) Hypoxia Current visit: Yes Status: Acute Assessment and Plan: Impression Hypoxia-episodal- RA 85% -- resolved RSV infection Upper respiratory congestion DM HTN BPH Plan Clinically, much improved. Cough and congestion decreasing. Maintaining saturations on RA well. Eating and drinking well. Lab stable. Will discharge to home in stable condition. Diabetic diet, plenty of fluids to maintain hydration. Activities as tolerated. Encourage slow deep breathing to help pulmonary toilet. Mucinex DM (or similar product) routinely for 1 week, then as needed for cough/ congestion. Tessalon Perles as needed for cough. F/U with Dr Cuello in 1 week, sooner as problems of need indicate. See orders for details. Time spent with patient care and discharge greater than 30 minutes. DVT Prophylaxis: SCD's Resuscitation Status: Full Code - Physician Narrative Physician: Chris Hernandez MD Narrative: Date: 06/24/17 Time: 1125 Hospital Course Summary Disclaimer: The visit summary below is not to be considered part of the above Progress Note. Hospital Course: 06/23/17 OBS Admission Admit patient to outpatient observation under the care of Dr. Oliver for episodic hypoxia, with URI congestion. Patient does feel that his dyspnea and cough. He improved following a DuoNeb breathing treatment. We will order DuoNeb 4 times a day. Will check viral respiratory panel - Positive for RSV. Nature continuous oxygen saturations and utilize oxygen as needed to keep sats greater than 90%. Mucinex and Ricola cough drops as needed. Tessalon Perles for cough as needed. At this point, clinically, as well as the laboratories patient does not appear to have a bacterial process. Will hold off on antibiotic therapy at this time. Normal saline at 100 ML per hour for gentle hydration - DC IV fluids when current bag is empty. Recheck CBC and BMP tomorrow morning to follow blood counts, renal function and electrolytes At time of discharge medical care will return to primary care provider, Dr Cuello. 06/24/17 Discharge Clinically, much improved. Cough and congestion decreasing. Maintaining saturations on RA well. Eating and drinking well. Lab stable. Will discharge to home in stable condition. Diabetic diet, plenty of fluids to maintain hydration. Activities as tolerated. Encourage slow deep breathing to help pulmonary toilet. Mucinex DM (or similar product) routinely for 1 week, then as needed for cough/ congestion. Tessalon Perles as needed for cough. F/U with Dr Cuello in 1 week, sooner as problems of need indicate. See orders for details.
--- NOTE | 2017-06-24 11:52 | Discharge Summary ---
Discharge Information Date of admission: 06/23/17 14:25 Anticipated date of discharge: 06/24/17 Attending Physician: Chris Hernandez MD Primary care physician: Ricci Cuello DO - Discharge Diagnosis (1) Hypoxia Status: Acute Discharge diagnosis Hypoxia-episodal- RA 85% -- resolved Associated conditions and complications RSV infection Upper respiratory congestion DM HTN Stage III CKD BPH - Laboratory Labs: Admit Lab 06/23/17 11:52 WBC 7.8 Hgb 16.1 Hct 49.1 MCV 86.0 Plt Count 225 Neut % (Auto) 55.7 [place] % (Auto) 16.3 H Eos % (Auto) 3.3 Baso % (Auto) 0.6 Admit Lab 06/23/17 11:52 Sodium 144 Potassium 4.4 Chloride 105 Carbon Dioxide 24 Anion Gap 15 BUN 14.0 Creatinine 1.4 GFR Calculation 48 Glucose 98 Calculated Osmolality 278 Calcium 9.4 Troponin I < 0.012 B-Natriuretic Peptide 108 Respiratory Panel 06/23/17 11:48 RSV (PCR) Detected A* 06/24/17 04:43 06/24/17 04:43 - Microbiology None - Radiology Radiology: Date of Exam: 06/23/17 PROCEDURE: CHEST 2-VIEWS UPRIGHT (PA & LAT) Findings: The lungs are stable in appearance without new focal airspace consolidation. There is no pleural effusion or pneumothorax. The heart size, pulmonary vascularity and mediastinal contours are unchanged. Prior CABG. IMPRESSION: Stable appearance of the chest without acute cardiopulmonary disease. History of Present Illness HPI: Mr Dobson is a pleasant 82 yr old male presented to the emergency room today for shortness of breath and cough. Patient states he began having upper respiratory congestion, rhinorrhea, fatigue with diarrhea 2 days ago. Symptoms have worsened today and he is having increased shortness of breath with exertion as well as cough. Acute workup was performed in the emergency room. CBC was normal, chemistry panel also normal, proBNP also normal as well as a negative troponin. Influenza A and B were both negative. Chest x-ray was negative for acute cardiopulmonary disease. Patient did have an episode of hypoxia at which time room air saturations decreased to 85%. Patient is quite symptomatic with dyspnea whenever he is lying down. Given his clinical symptoms and hypoxia. The hospitalist services were contacted and accepted patient for outpatient observation for further evaluation and treatment. For complete details of the H&P refer to that document. Objective Vital signs: Temperature 96.8 F 06/24/17 07:00 Pulse Rate 77 06/24/17 08:00 Respiratory Rate 18 06/24/17 10:39 Blood Pressure 139/67 06/24/17 07:00 Pulse Oximetry 93 06/24/17 10:39 Height/Weight/BMI: Height 1.7 m Weight 86.3 kg Body Mass Index 29.5 Hospital Course This is a general summary of the patient's hospital course. For more details refer to the complete medical record. Hospital course: 06/23/17 OBS Admission Admit patient to outpatient observation under the care of Dr. Oliver for episodic hypoxia, with URI congestion. Patient does feel that his dyspnea and cough. He improved following a DuoNeb breathing treatment. We will order DuoNeb 4 times a day. Will check viral respiratory panel - Positive for RSV. Nature continuous oxygen saturations and utilize oxygen as needed to keep sats greater than 90%. Mucinex and Ricola cough drops as needed. Tessalon Perles for cough as needed. At this point, clinically, as well as the laboratories patient does not appear to have a bacterial process. Will hold off on antibiotic therapy at this time. Normal saline at 100 ML per hour for gentle hydration - DC IV fluids when current bag is empty. Recheck CBC and BMP tomorrow morning to follow blood counts, renal function and electrolytes At time of discharge medical care will return to primary care provider, Dr Cuello. 06/24/17 Discharge Clinically, much improved. Cough and congestion decreasing. Maintaining saturations on RA well. Eating and drinking well. Lab stable. Will discharge to home in stable condition. Diabetic diet, plenty of fluids to maintain hydration. Activities as tolerated. Encourage slow deep breathing to help pulmonary toilet. Mucinex DM (or similar product) routinely for 1 week, then as needed for cough/ congestion. Tessalon Perles as needed for cough. F/U with Dr Cuello in 1 week, sooner as problems of need indicate. See orders for details. Time spent with patient: discharge greater than 30 minutes Resuscitation Status: Full Code Discharge Plan - Discharge Disposition Discharge Date: 06/24/17 Disposition: 01 Discharged Home, Self-Care *Condition: Improved Reason For Visit (Visit label in EMR): hypoxia and dyspnea with cough - Discharge Medications *Discharge Medications: New Guaifenesin/Dm [Mucinex Dm] 1 tab PO BID #1 box Menthol Cough Drops [Ricola Sf] 1 lozenge MM PRN PRN lozenge PRN Reason: Cough Benzonatate [Tessalon Perles] 100 mg PO TID PRN #20 cap PRN Reason: Cough Continue Nitroglycerin [Nitrostat] 0.4 mg SL Q5MIN PRN #20 tab PRN Reason: CHEST PAIN GlipiZIDE [Glucotrol] 5 mg PO BID Aspirin [Adult Aspirin Regimen] 81 mg PO HS Metoprolol Tartrate 50 mg PO TID Atorvastatin Calcium 20 mg PO HS - Discharge Packet/Instructions *Diet: 2000 KCAL ADA diet *Activity: As tolerated. Encourage increasing activities as able to improve strenght-take breaks as needed with any fatigue or shortness of air. *Pain Management/Treatment: Continue prior pain medications. *Wound Care: N/A Additional Instructions: May use Mucinex DM (or similar OTC product) to help decrease cough/congestion. Use routinely for 1 week, then as needed. Tessalon Perle can help decrease cough - can use 1 three times a day as needed. Would encourge slow, deep breaths to help improve lung function. 3-5 deep breaths every 1 hour while awake. *Expected Signs/Symptoms: Decreasing cough and congestion. Improvement of breathing. *Notify Physician if: Temp > 100.4. Worsening shortness or air. *During Business Hours Contact: Dr Cuello *After Business Hours Contact: Call [facility] [place] and have Dr Cuello or his covering provider contacted. *Pending Lab/Results: No Pending Lab - Referrals/Follow Up *Referrals/Follow Up: Ricci Cuello DO [Family Provider] - 1 Week (Hospital follow up for RSV. ) - Patient Handouts Patient Handouts: Hypoxia (GEN) - Dismissal Complete Discharge Instructions are:: Complete Physician Narrative - Narrative Physician: Chris Hernandez MD Attestation Narrative: Date: 06/24/17 Time: 1149 I have independently interviewed and examined patient prior to discharge. See my progress note from today for details. Medically stable for discharge to home.
[2017-06-24 14:11] VITALS: BMI 29.7
== END 2017-06-24 13:00 | disposition home or self-care (01) ==
LOC: ED 10:30 → MED 10:30 → SUATTDRO 14:25 → MED 14:50
PROVIDERS: ADMIT Internal Medicine; ATTEND Hospitalist